=== PATIENT | male | born 1980 | race Caucasian/White ===

== ENCOUNTER 2023-01-27 19:18 | Emergency (ER) | payer OTHER, SELFPAY ==
[2023-01-27 19:25] VITALS: BP 146/81; PULSE 98; RESP 16; TEMP 36.9; O2SAT 98
--- NOTE | 2023-01-27 19:42 | ED.URI ---
HPI - URI/Sore Throat General Chief Complaint: Upper Respiratory Infection Stated Complaint: Sore Throat Time Seen by Provider: 01/27/23 19:32 Source: patient and RN notes reviewed Mode of arrival: ambulatory Limitations: no limitations History of Present Illness HPI Narrative: Patient presents today complaining of congestion, sore throat, postnasal drip, hoarse voice, cough since 3:00 a.m. this morning. Denies fever. He has been taking Tylenol and DayQuil today without much relief. Currently rates his pain 5/10. States his son is also currently sick with similar symptoms. Related Data Home Medications Medication Instructions Recorded Confirmed buprenorphine 8 mg-naloxone 2 mg 1 tablet sublingual QID 01/27/23 01/27/23 sublingual tablet citalopram 40 mg tablet 40 mg PO DAILY 01/27/23 01/27/23 clonazepam 1 mg tablet 3.5 mg PO DAILY 01/27/23 01/27/23 gabapentin 300 mg capsule 300 mg PO TID 01/27/23 01/27/23 mirtazapine 45 mg tablet 45 mg PO HS 01/27/23 01/27/23 omeprazole 40 mg capsule,delayed 40 mg PO DAILY 01/27/23 01/27/23 release Allergies Allergy/AdvReac Type Severity Reaction Status Date / Time No Known Allergies Allergy Verified 01/27/23 19:23 Review of Systems Review of Systems: CONSTITUTIONAL: Denies body aches, fever, chills, or sweats. EYES: Denies visual changes, redness, or discharge. ENT: Denies rhinorrhea, or otalgia.+ congestion, sore throat, postnasal drip, hoarse voice CARDIOVASCULAR: Denies chest pain, palpitations, or edema. RESPIRATORY: Denies dyspnea.+ cough GASTROINTESTINAL: Denies abdominal pain, nausea, vomiting, or diarrhea. GENITOURINARY: Denies dysuria or hematuria. SKIN: Denies rash, itching, or wounds. MUSCULOSKELETAL: Denies back pain, joint pain, or myalgia. NEUROLOGIC: Denies headache, numbness, tingling, or weakness. PSYCH: Denies depression or anxiety. PMFSH Comments At time of signature, I have reviewed and agree with nursing past medical, surgical, social and family history unless otherwise noted. Please see nursing chart for further information. There is no relevant family history pertinent to the presenting complaint Exam Narrative: GENERAL: Mildly ill-appearing, well-nourished, and in no acute distress. HEAD: Normocephalic, atraumatic. EYES: EOMI. No redness or drainage. Conjunctivae normal. ENT: Mucous membranes pink and moist. Nares congested.. No rhinorrhea. TMs normal bilaterally. Throat mildly erythematous without edema or exudate. Uvula midline. Hoarse voice. NECK: Normal AROM. Supple. No lymphadenopathy. CHEST: No respiratory distress. Clear to auscultation. HEART: Regular rate and rhythm. No murmur appreciated. Normal peripheral pulses. EXTREMITIES: Normal range of motion. No edema. SKIN: Warm, dry, no rash. Capillary refill normal. Normal skin turgor. NEURO: No focal deficits. Alert and oriented x3. Gait steady. PSYCH: Normal affect. No signs of depression or anxiety. Course Course Level of Care: Express Care Visit Vital Signs Vital signs: Vital Signs Temperature 98.4 F 01/27/23 19:25 Pulse Rate 98 01/27/23 19:25 Respiratory Rate 16 01/27/23 19:25 Blood Pressure 146/81 H 01/27/23 19:25 Pulse Oximetry 98 01/27/23 19:25 Oxygen Delivery Room Air 01/27/23 19:25 Temperature 98.4 F 01/27/23 19:25 Pulse Rate 98 01/27/23 19:25 Respiratory Rate 16 01/27/23 19:25 Blood Pressure 146/81 H 01/27/23 19:25 Pulse Oximetry 98 01/27/23 19:25 Oxygen Delivery Room Air 01/27/23 19:25 Reviewed. Pt has been instructed to follow up with his PCP regarding his elevated blood pressure today. MDM - URI/Sore Throat MDM Narrative Medical decision making narrative: Rapid strep negative. Culture pending. Symptoms likely viral. No prescription medications indicated at this time. Anticipatory guidance given. Differential Diagnosis Differential diagnosis: Likely upper respiratory infection, sinusitis, viral infection, b
== END 2023-01-27 19:52 | disposition home or self-care (01) ==
PROVIDERS: Emergency Provider Nurse Practitioner
DX: J06.9 Acute upper respiratory infection, unspecified (principal); F41.9 Anxiety disorder, unspecified
CPT/HCPCS: 87081; 87880; 99213; G0463

== ENCOUNTER 2024-03-11 13:36 | Outpatient (CLI) | payer OTHER, SELFPAY ==
--- NOTE | ~2024-03-11 | XR_ITS ---
XR chest 2V 03/11/2024 13:47 Indication: Dyspnea. Pneumonia. Procedure: 2 view chest Comparison: 09/02/2011 Findings: Bibasilar airspace disease, compatible with pneumonia. Loculated left pleural effusion. Hea rt size normal. No pneumothorax. Impression: 1: Bibasilar pneumonia with loculated left pleural effusion. Reviewed, dictated and finalized at location B. Impression: 1: Bibasilar pneumonia with loculated left pleural effusion.
== END 2024-03-11 13:37 | disposition home or self-care (01) ==
PROVIDERS: Visit Provider Internal Medicine
DX: R06.00 Dyspnea, unspecified (principal); J90 Pleural effusion, not elsewhere classified; J18.8 Other pneumonia, unspecified organism
CPT/HCPCS: 71046

== ENCOUNTER 2024-04-05 07:33 | Outpatient (CLI) | payer OTHER, SELFPAY ==
--- NOTE | 2024-04-02 12:54 | PC.NURSE ---
Pre Radiology instructions Report to the outpatient oni [email or web address] on date _[id number]_ at time _0730_ for procedure Time: _929_ YOU MAY BE MONITORED AT HOSPITAL FOR UP TO 4 HOURS AFTER YOUR PROCEDURE. A visitor will be allowed to accompany the patient into the hospital. You and your visitor will be asked to self-screen and do not enter if you have any COVID symptoms. A mask is OPTIONAL within the hospital. Patients are to have no food or drink 6 hours prior to procedure time Driving will be restricted after the procedure, you must have a person to drive you home. Labs will be drawn in preop area and once reviewed, you will be taken to radiology area for procedure. When the procedure is completed, you will be taken to outpatient where you will be monitored for several hours. You may have one visitor in this area. Other than holding anti-coagulants, patient may take other medication(s) as scheduled. Prior to your appointment date patients are instructed to hold anti-coagulants after discussing with ordering provider to stop. If unable to discontinue anti-coagulants please notify radiologist. ? No aspirin or warfarin (Coumadin) for 7 days prior to the procedure. ? No clopidogrel (Plavix), ticagrelor (Brilinta), prasugrel (Effient) or dabigatran (Pradaxa) for 5 days prior to the procedure. ? No rivaroxaban (Xarelto), apixaban (Eliquis), dipyridamole (Aggrenox or Persantine) or cilostazol (Pletal) for 2 days prior to the procedure. Medications to discontinue per physician: Date to take last dose: Please leave all valuables, including medications, at home the day of procedure. The hospital will not accept responsibility for valuables. Wear comfortable, loose fitting clothing.? Follow any additional instructions given to you from ordering provider. Telephone instructions given to _Ramirez__and asked if any additional questions and then verbalized understanding. Patient advised to call scheduling provider office or registration scheduling [phone] if any additional questions.
[2024-04-02 13:00] VITALS: BMI 39.9
[2024-04-05] VITALS (8 sets, daily range): BP systolic 107–131; BP diastolic 63–95; PULSE 84–96; RESP 16–18; TEMP 36.5; O2SAT 96–98
--- NOTE | ~2024-04-05 | XR_ITS ---
EXAMINATION: [id number] DATE: 04/05/2024 09:56 INDICATION: Left pleural effusion status post thoracentesis. TECHNIQUE: A single frontal view of the chest was obtained. COMPARISON: Chest 2 views 03/11/2024 FINDINGS: There are airspace opacities in the mid and lower lung zones. There is a small left pleural effusion. No pneumothorax. The heart size is normal. IMPRESSION: 1. Airspace opacities in the mid and lower lung zones with improvement on the right, consistent with pneumonia. 2. Small left pleural effusion. Reviewed, dictated and finalized at location A. IMPRESSION: 1. Airspace opacities in the mid and lower lung zones with improvement on the r ight, consistent with pneumonia. 2. Small left pleural effusion.
--- NOTE | ~2024-04-05 | US_ITS ---
EXAMINATION: US thoracentesis DATE: 04/05/2024 10:20 INDICATION: pleural effusion TECHNIQUE: The procedure and its risks, benefits, and alternatives were discussed with the patient. P otential risks discussed included bleeding, infection, and pneumothorax. The patient understood the r isks and agreed to proceed. The skin was prepped and draped in sterile fashion. 1% lidocaine was used for local anesthesia. Under ultrasound guidance, a 5 Fr catheter with trochar was advanced into the left pleural effusion. Fluid was aspirated. The catheter was removed, and a dressing was applied. The re were no immediate complications. FINDINGS: Ultrasound images demonstrate a left pleural effusion and the catheter within the fluid. IMPRESSION: 1. Successful ultrasound-guided thoracentesis yielding 100 mL of bloody opaque bergeron fluid. Reviewed, dictated and finalized at location A.
--- NOTE | 2024-04-05 08:07 | SUR.PREOP ---
Radiologist notified that patient consumed monster energy drink at 0500, okay to resume with labs
[2024-04-05 08:32] LABS: Mean Platelet Volume 9.6 fl (7.4-10.4); Platelet Count Result 223 k/mm3 (150-375)
[2024-04-05 08:37] LABS: Prothrombin Time 13.8 Seconds (11.1-14.7)
== END 2024-04-05 12:05 | disposition home or self-care (01) ==
PROVIDERS: PCP Internal Medicine; Visit Provider Radiology Diagnostic Radiology
DX: J90 Pleural effusion, not elsewhere classified (principal)
CPT/HCPCS: 32555; 36415; 82150; 82945; 84157; 85049; 85610; 87070; 87075; 87077; 87205; 88108; 88305

== ENCOUNTER 2024-04-09 12:39 | Emergency (ER) | payer OTHER, SELFPAY ==
[2024-04-09] VITALS (8 sets, daily range): BP systolic 99–129; BP diastolic 63–84; PULSE 84–97; RESP 10–20; TEMP 37.3; O2SAT 94–100
--- NOTE | ~2024-04-09 | CT_ITS ---
EXAMINATION: CTA chest PE protocol DATE: 04/09/2024 14:28 INDICATION: Hemoptysis. TECHNIQUE: Computed tomography angiography (CTA) of the chest was performed with 100 mL Omnipaque-350 intravenous contrast timed to evaluate the pulmonary arteries. Coronal maximum intensity projection 3D-reconstructions were created by the technologist. Automated exposure control and iterative reconst ruction technique were employed. The dose-length product was 1054.60 mGy-cm. COMPARISON: None. FINDINGS: There are tree-in-bud opacities and centrilobular nodules in all lobes with a lower lung pr edominance. There are peripheral airspace opacities in left lower lobe. There is a small left pleural effusion with pleural thickening and stranding of the extrapleural fat. The heart size is normal. No pericardial effusion. There is no pulmonary embolus. There is mild left hilar and mediastinal lympha denopathy, likely reactive. There is mild bilateral gynecomastia. There is a large sliding hiatal her marta. There is mild splenomegaly. There are bridging endplate osteophytes at multiple levels in the sp ine, consistent with diffuse idiopathic skeletal hyperostosis (DISH). IMPRESSION: 1. No pulmonary embolus. 2. Pneumonia involving all lobes with a lower lung predominance. 3. Small left-sided empyema. 4. Mild left hilar and mediastinal lymphadenopathy, likely reactive. 5. Large sliding hiatal hernia. Reviewed, dictated and finalized at location A.
--- NOTE | 2024-04-09 12:58 | ECG_ITS ---
Test Date: 2024-04-09 13:57:39 Measurements Intervals [place] Rate: 89 P: 33 ME: 172 QRS: 33 QRSD: 97 T: 36 QT: 347 QTc: 423 Interpretive Statements SINUS RHYTHM NORMAL ELECTRIC CART No previous ECG available for comparison Electronically Signed On 04-09-2024 15:58:04 CDT by Davide Tucker M.D.
--- NOTE | 2024-04-09 13:00 | ED.GENADULT ---
HPI - General Adult General Chief complaint: Unspecified <Brie Carter PA-C - Last Filed: 04/09/24 13:03> Stated complaint: coughing up blood <Brie Carter PA-C - Last Filed: 04/09/24 13:03> Time Seen by Provider: 04/09/24 15:36 <Brie Carter PA-C - Last Filed: 04/09/24 13:03> Focused HPI: 43 y/o M Presents to the emergency department for hemoptysis. Patient states 4 days ago he underwent an outpatient thoracentesis ordered by his PCP. States after the procedure he has small amount of hemoptysis and contacted his PCP who advised him to follow-up to the ED if it worsens. States he was asymptomatic for few days, however last night he began coughing up large amounts of blood which persisted today and prompted him to come to the ED. He reports intermittent chest pain, no shortness of breath. Denies cough or congestion, fever. He is reporting some swelling to his lower extremities and states his PCP recently started him on Lasix. Denies formal diagnosis of CHF or lung cancer. He is not anticoagulated. GENERAL: Well-appearing, well-nourished, and in no acute distress. HEAD: Normocephalic, atraumatic. CHEST: Clear to auscultation. ?No respiratory distress. EXTREMITIES: 2+ pitting edema bilateral lower extremities without overlying warmth or erythema HEART: Regular rate and rhythm.? NEURO: ?Alert and oriented x3. Patient screened in triage and initial orders placed.? ?Additional care and disposition to be based upon?diagnostic testing and treatment. <Brie Carter PA-C - Last Filed: 04/09/24 13:03> History of Present Illness HPI narrative: 43-year-old male presents emergency department for evaluation hemoptysis. Patient states since having his thoracentesis he has had intermittent hemoptysis. Patient does not describe nita hemoptysis. Patient is not coughing and has no distress at time of evaluation. Patient states he has had multiple treatments for pneumonia since January and has been on Augmentin and azithromycin. <Frankie Wisdom MD - Last Filed: 04/09/24 18:53> Related Data Home medications: Home Medications Medication Instructions Recorded Confirmed buprenorphine 8 mg-naloxone 2 mg 1 tablet sublingual QID 01/27/23 04/05/24 sublingual tablet clonazepam 1 mg tablet 2.5 mg PO DAILY 01/27/23 04/05/24 mirtazapine 45 mg tablet 45 mg PO HS 01/27/23 04/05/24 omeprazole 40 mg capsule,delayed 40 mg PO DAILY 01/27/23 04/05/24 release escitalopram oxalate 20 mg tablet 20 mg PO DAILY 04/02/24 04/05/24 furosemide 20 mg tablet 20 mg PO DAILY 04/02/24 04/05/24 gabapentin 600 mg tablet 600 mg PO TID 04/02/24 04/05/24 potassium chloride 20 mEq 20 meq PO DAILY 04/02/24 04/05/24 tablet,extended release bupropion HCl 150 mg 24 hr tablet, 150 mg PO DAILY 04/05/24 04/05/24 extended release <Brie Carter PA-C - Last Filed: 04/09/24 13:03> Allergies/adverse reactions: Allergies Allergy/AdvReac Type Severity Reaction Status Date / Time No Known Allergies Allergy Verified 04/09/24 15:35 <Brie Carter PA-C - Last Filed: 04/09/24 13:03> Review of Systems Review of Systems: All systems reviewed & are unremarkable except as noted in HPI and below <Frankie Wisdom MD - Last Filed: 04/09/24 18:53> Exam Narrative: APPEARANCE: Well appearing, no pain, no distress, well-nourished. HEAD: normocephalic, atraumatic. EYES: PERRLA/EOMI, conjunctivae clear. NOSE: Normal no drainage EARS:TMS clear with good light reflex. THROAT: Pharynx clear, no exudate. NECK: Supple. No adenopathy, no masses. RESPIRATORY: Airway patent, respirations nonlabored. Clear to auscultation bilaterally, no rales, rhonchi, wheezing. CARDIOVASCULAR: Regular rate and rhythm without murmurs rubs or gallops. ABDOMINAL: Soft, nontender, nondistended, normal bowel sounds MUSCULOSKELETAL: Moves all extremities. Strength/ROM intact, No edema, No calf tenderness. NEURO: Alert. Cranial nerves I
[2024-04-09 14:18] LABS: Basophils Absolute Auto 0.1 K/mm3 (0.0-0.1); Basophils Percent Auto 0.6 % (0.2-1.2); Eosinophils Absolute Auto 0.1 K/mm3 (0-0.3); Eosinophils Percent Auto 0.8 % (0-4.4); Hemoglobin 12.4 g/dL (14.0-18.0); Immature Granulocyte Absolute 0.02 K/mm3 (0.00-0.031); Immature Granulocyte Percent A 0.2 % (0-0.5); Lymphocytes Absolute Auto 1.39 K/mm3 (0.9-3.2); Lymphocytes Percent Auto 13.3 % (18.3-44.2); Mean Corpuscular HGB Conc 30.2 g/dl (32-36); Mean Corpuscular Hemoglobin 24.3 pg (26-34); Mean Corpuscular Volume 80.4 fl (80-100); Mean Platelet Volume 9.8 fl (7.4-10.4); Monocytes Absolute Auto 0.7 K/mm3 (0.1-0.6); Neutrophils Absolute Auto 8.2 K/mm3 (1.3-6.7); Neutrophils Percent Auto 78.1 % (45.5-73.1); Platelet Count Result 238 k/mm3 (150-375); Red Cell Distribution Width 17.4 % (11.5-14.5); White Blood Count 10.5 K/mm3 (4.5-10.0)
[2024-04-09 14:25] LABS: INR 1.2
[2024-04-09 14:26] LABS: Partial Thromboplastin Time 32.7 Seconds (22.3-36.8)
[2024-04-09 14:33] LABS: Alanine Aminotransferase 12 U/L (6-50); Albumin Level 4.6 g/dL (3.5-5.1); Alkaline Phosphatase 99 U/L (38-126); Anion Gap 7 mmol/L (4-12); Aspartate Amino Transferase 21 U/L (17-59); Bilirubin,Total 1.1 mg/dL (0.2-1.3); Blood Urea Nitrogen 9 mg/dL (9-20); Calcium 9.3 mg/dL (8.4-10.2); Carbon Dioxide 32 mmol/L (22-30); Chloride 99 mmol/L (98-107); Estimated CRCL calculation 109 ml/min; Estimated Glomerular Filt Rate > 60; Glucose 101 mg/dL (65-110); Lipase 33 U/L (23-300); Sodium 138 mmol/L (137-145)
[2024-04-09 14:44] LABS: NT Pro B Type Natriuretic Pept 30 pg/mL (19.9-100); Troponin I < 0.012 ng/mL (0.000-0.034)
--- NOTE | 2024-04-09 16:54 | ECG_ITS ---
Test Date: 2024-04-09 16:57:49 Measurements Intervals [place] Rate: 85 P: 14 DE: 160 QRS: 40 QRSD: 98 T: 36 QT: 366 QTc: 435 Interpretive Statements SINUS RHYTHM Compared to ECG 04/09/2024 13:57:39 No significant changes Electronically Signed On 04-10-2024 11:07:45 CDT by Víctor Moreno M.D.
[2024-04-09] MEDS: SODIUM CHLORIDE 0.9% IV 500 ML 999 ML IV CONT (17:00)
[2024-04-09 17:02] LABS: Troponin I < 0.012 ng/mL (0.000-0.034)
[2024-04-09] MEDS: AMOXICILLIN/CLAVULANATE K 875-125 MG TAB 1 TABLET PO (17:21)
[2024-04-09] MEDS: AZITHROMYCIN 250 MG TABLET 500 MG PO (17:21)
[2024-04-12 08:15] LABS: Estimated CRCL calculation 100 ml/min; Estimated Glomerular Filt Rate > 60
== END 2024-04-09 17:28 | disposition home or self-care (01) ==
PROVIDERS: Physician Assistant; Emergency Provider Emergency Medicine; PCP Internal Medicine
DX: J18.9 Pneumonia, unspecified organism (principal); R04.2 Hemoptysis; K44.9 Diaphragmatic hernia without obstruction or gangrene
CPT/HCPCS: 36415; 71275; 80053; 82565; 83690; 83880; 84484; 85025; 85610; 85730; 93005; 94664; 99284; A9270; J7040; Q9967

== ENCOUNTER 2024-05-28 13:58 | Outpatient (CLI) | payer OTHER, SELFPAY ==
--- NOTE | ~2024-05-28 | XR_ITS ---
XR chest 2V 05/28/2024 14:20 Indication: Lower respiratory infection Procedure: 2 view chest Comparison: 05/28/2024 Findings: Large hiatal hernia. Loculated left pleural effusion. Left basilar airspace disease may rep resent atelectasis or residual pneumonia. Heart size normal. Right lung clear. No pneumothorax. Impression: 1: Left basilar airspace disease may represent atelectasis or residual pneumonia. 2: Persistent loculated left pleural effusion. Reviewed, dictated and finalized at location B. Impression: 1: Left basilar airspace disease may represent atelectasis or residual pneumoni a. 2: Persistent loculated left pleural effusion.
== END 2024-05-28 13:59 | disposition home or self-care (01) ==
LOC: ANHIMG 14:02
PROVIDERS: PCP Internal Medicine; Visit Provider Internal Medicine
DX: J22 Unspecified acute lower respiratory infection (principal); J90 Pleural effusion, not elsewhere classified
CPT/HCPCS: 71046

== ENCOUNTER 2025-01-10 15:02 | Outpatient (CLI) | payer OTHER, SELFPAY ==
[2025-01-10 15:17] LABS: Basophils Absolute Auto 0.03 K/mm3 (0.00-0.10); Basophils Percent Auto 0.6 % (0.0-1.0); Eosinophils Absolute Auto 0.09 K/mm3 (0.02-0.50); Eosinophils Percent Auto 1.7 % (1.0-6.0); Hematocrit 40.7 % (40.0-54.0); Hemoglobin 11.7 g/dL (14.0-18.0); Immature Granulocyte Absolute 0.01 K/mm3 (0.00-0.00); Immature Granulocyte Percent A 0.2 % (0.0-0.0); Lymphocytes Absolute Auto 1.05 K/mm3 (1.10-4.50); Mean Corpuscular HGB Conc 28.7 g/dL (32-36); Mean Corpuscular Hemoglobin 22.1 pg (27.0-31.0); Mean Corpuscular Volume 76.9 fL (78.0-102.0); Mean Platelet Volume 9.4 fl (8.7-11.0); Monocytes Absolute Auto 0.31 K/mm3 (0.10-0.90); Monocytes Percent Auto 5.9 % (2.0-11.0); Neutrophils Absolute Auto 3.75 K/mm3 (1.70-7.20); Neutrophils Percent Auto 71.6 % (50.0-70.0); Platelet Count Result 168 K/mm3 (150-420); Red Blood Count 5.29 M/mm3 (4.70-6.10); Red Cell Distribution Width 18.5 % (11.6-14.4); White Blood Count 5.2 K/mm3 (4.8-10.8)
[2025-01-10 16:24] LABS: Hemoglobin A1C 4.8 % (<5.7)
[2025-01-10 16:36] LABS: Alanine Aminotransferase 28 U/L (16-63); Albumin Level 4.1 g/dL (3.4-5.0); Alkaline Phosphatase 135 U/L (46-116); Anion Gap 5 mmol/L (4-12); Aspartate Amino Transferase 17 U/L (15-37); Bilirubin,Total 0.3 mg/dL (0.00-1.00); Blood Urea Nitrogen 5 mg/dL (7-18); Carbon Dioxide 33 mmol/L (21-32); Chloride 101 mmol/L (98-108); Cholesterol 113 mg/dL (0-200); Estimated Glomerular Filt Rate > 60; Glucose 91 mg/dL (70-99); HDL Direct 28 mg/dL (40-60); LDL Cholesterol Calculated 71 mg/dL (<130); Osmolality Calculated 285 mOsm/kg (285-295); Potassium 4.4 mmol/L (3.5-5.1); Prostate Specific Antigen 0.4 ng/mL (< OR = 4.0); Sodium 139 mmol/L (136-145); Total Protein 7.3 g/dL (6.4-8.2); Triglycerides 68 mg/dL (0-150)
--- OUTSIDE RECORDS SUMMARY | 2025-01-10 16:39 | XMS_ITS | CONTINUITY OF CARE DOCUMENT ---
Author Name nemesio herr Address Unknown Organization [facility] Address [address] [place] [address] Phone [phone] Care Team Providers Care Applier Name Role Phone Galdino May MD Unavailable [phone] Galdino May MD Unavailable [phone] INSURANCE PROVIDERS Payer name Policy type / Coverage type [employer] party ID [employer]ICA[employer] (2) Medicaid [id number]
--- OUTSIDE RECORDS SUMMARY | 2025-01-10 16:39 | XMS_ITS | Referral Summary ---
Author Organization [facility] Address [address] [place] [address] Care Team Providers Care Manager Qa Name Role Phone Jose Hurtado MD Primary Care Provider [phone] Allergies Active Allergy Reactions Criticality Noted Date Comments No Known Allergies Other (See comments) Low 019 Reaction: Medications clonazePAM (KlonoPIN) 1 mg tablet Active citalopram (CeleXA) 10 mg tablet Active ferrous sulfate 325 mg (65 mg of elemental iron) tablet Take by mouth 02/18/2018 Active buPROPion SR (WELLBUTRIN SR) 150 mg 12 hr tablet Take by mouth 06/25/2017 Active buprenorphine-n aloxone (SUBOXONE) 8-2 mg per SL tablet 0 11/25/2018 Active omeprazole (PriLOSEC) 40 mg capsule Take 1 capsule (40 mg total) by mouth daily 03/18/2023 Active mirtazapine (REMERON) 45 mg tablet Take 1 tablet (45 mg total) by mouth nightly 06/01/2023 Active gabapentin (NEURONTIN) 600 mg tablet Take 1 tablet (600 mg total) by mouth 3 (three) times a day as needed 06/05/2023 Active Active Problems Problem Noted Date 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 Immunizations Immunization Administration Dates Next Due Influenza, Unspecified 07/08/2017,10/03/2015 Social History Tobacco Use Types Packs/Day Years Used Date Smoking Tobacco: Former Cigarettes 1.5 20 1 2016 Tobacco Cessation:Counseling Given: Not Answered Sex and Gender Information Value Date Recorded Sex Assigned at Not on file Legal Sex Male 7:17 AM [employer] Gender Identity Not on file Sexual Orientation Not on file Last Filed Vital Signs Vital Sign Reading Time Taken Comments Blood Pressure 145/86 07/11/2017 12:06 PM CDT Pulse 94 07/11/2017 12:06 PM CDT Temperature - - Respiratory Rate - - Oxygen Saturation 96% 07/11/2017 8:05 AM CDT Inhaled Oxygen Concentration - - Weight 117.9 kg (259 lb 15.8 oz) 07/08/2017 9:02 PM CDT Height 175.3 cm (5' 9 ) 07/08/2017 9:02 PM CDT Body Mass Index 38.39 07/08/2017 9:02 PM CDT Plan of Treatment Not on file Insurance [facility] Care Teams Manager Qa Relationship Specialty Start Date End Date Jose Hurtado MD PCP - General 03/24/17
--- OUTSIDE RECORDS SUMMARY | 2025-01-10 16:39 | XMS_ITS | Patient Health Record ---
Author Organization [facility] Address [address] [place] [address] Care Team Providers Care Bottle Booth Attendant Name Role Phone Murphy Loza Primary Care Provider [phone] Kyra Tamez Unavailable [phone] Layla Curry Unavailable [phone] Chencho Levin Unavailable [phone] Renee Batista Unavailable [phone] Keyur Parson Unavailable [phone] Regina Plasencia Unavailable [phone] Allergies No Known Allergies Results Component Value Reference Range Notes 12 Panel Urine Drug Screen Reviewed date:12/29/2024 01:42:54 PM Interpretation: Performing Lab: Notes/Report: THC neg LORA neg MOP (OPI) neg AMP neg MET neg BAR neg BZO neg MDMA neg MTD neg OXY neg PCP neg BUP POS 12 Panel Urine Drug Screen Reviewed date:02/19/2024 01:19:31 PM Interpretation: Performing Lab: Notes/Report: THC NEG LORA NEG MOP (OPI) neg AMP neg MET neg BAR neg BZO neg MDMA neg MTD neg OXY neg PCP neg BUP POS 12 Panel Urine Drug Screen Reviewed date:03/08/2024 07:23:03 PM Interpretation: Performing Lab: Notes/Report: THC neg LORA neg MOP (OPI) neg AMP neg MET neg BAR neg BZO neg MDMA neg MTD neg OXY neg PCP neg BUP POS Chest X-ray PA and lateral Reviewed date:03/22/2024 02:57:48 PM Interpretation: Performing Lab: Notes/Report: 12 Panel Urine Drug Screen Reviewed date:04/19/2024 10:50:32 AM Interpretation: Performing Lab: Notes/Report: THC neg LORA neg MOP (OPI) neg AMP neg MET neg BAR neg BZO neg MDMA neg MTD neg OXY neg PCP neg BUP POS 12 Panel Urine Drug Screen Reviewed date:11/29/2024 01:49:41 PM Interpretation: Performing Lab: Notes/Report: THC neg LORA neg MOP (OPI) neg AMP neg MET neg BAR neg BZO neg MDMA neg MTD neg OXY neg PCP neg BUP POS 12 Panel Urine Drug Screen Reviewed date:05/19/2024 01:06:09 PM Interpretation: Performing Lab: Notes/Report: THC neg LORA neg MOP (OPI) neg AMP neg MET neg BAR neg BZO neg MDMA neg MTD neg OXY neg PCP neg BUP POS Buprenorphine and Metabolite (Urine test) Reviewed date:03/11/2024 02:34:36 PM Interpretation: Normal Performing Lab:[facility], [address], [place], Phone - [phone], Director - PhDAbudu Notes/Report: Clinical Information:[id number]:[id number] LM Buprenorphine Positive Confirmation p erformed by Mass Spectrometry Buprenorphine Positive Buprenorphine Conf, MS, UR 229 Cutoff=10 ng/m L Norbuprenorphine Positive Norbuprenorphine Conf, MS, UR >2000 Cutoff=10 n g/mL 12 Panel Urine Drug Screen Reviewed date:03/05/2024 01:19:23 PM Interpretation: Performing Lab: Notes/Report: THC neg LORA neg MOP (OPI) neg AMP ng MET neg BAR neg BZO neg MDMA neg MTD neg OXY neg PCP neh BUP POS 12 Panel Urine Drug Screen Reviewed date:07/19/2024 10:13:50 AM Interpretation: Performing Lab: Notes/Report: THC neg LORA neg MOP (OPI) neg AMP neg MET neg BAR neg BZO neg MDMA neg MTD neg OXY neg PCP neg BUP POS 12 Panel Urine Drug Screen Reviewed date:11/02/2024 09:30:39 AM Interpretation: Performing Lab: Notes/Report: THC neg LORA neg MOP (OPI) neg AMP neg MET neg BAR neg BZO neg MDMA neg MTD neg OXY neg PCP neg BUP POS Ultrasound Guided Thoracente sis Reviewed date:05/21/2024 02:40:21 PM Interpretation: Performing Lab: Notes/Report: 12 Panel Urine Drug Screen Reviewed date:10/04/2024 01:28:23 PM Interpretation: Performing Lab: Notes/Report: THC neg LORA neg MOP (OPI) neg AMP neg MET neg BAR neg BZO neg MDMA neg MTD neg OXY neg PCP neg BUP pos 12 Panel Urine Drug Screen Reviewed date:06/17/2024 01:30:22 PM Interpretation: Performing Lab: Notes/Report: THC neg LORA neg MOP (OPI) neg AMP neg MET neg BAR neg BZO neg MDMA neg MTD neg OXY neg PCP neg BUP POS 12 Panel Urine Drug Screen Reviewed date:08/16/2024 10:23:07 AM Interpretation: Performing Lab: Notes/Report: THC neg LORA neg MOP (OPI) neg AMP neg MET neg BAR neg BZO neg MDMA neg MTD neg OXY neg PCP neg BUP POS Reason For Referral Reason pneumonia Diagnosis 1 Pneumonia of both lo wer lobes due to infectious organism (J18.9) Referral Organization Formerly [facility] Referring Provider First Name Murphy Referring Provider Last Name Dago Referring Provider Speciality Internal M edicine Referred Provider Specialty Pulmonology General Notes HENOK Stoll, Jillian Terry 04/12/2024 02:40:35 PM >Referral to [facility] Pulmonology. Letter to pt. , * Pt went to [facility] ED on 04/09/24 for coughing up blood ;diagnosed with Pneumonia. On 2 antibiotics; referred to Pulmonology from [facility] ED. Appt with Dr. Loza on 04/16/2024., Jared WHITING, Belen Bradley 05/21/2024 02:38:15 PM > Addressing referral due to pt. established care with specialist. Clinical Notes [facility], [address], [address] [address], , Referral Priority Routine Medications Medication SIG (Take, Route, Frequency, Duration) Notes Start Date End Date Status Gabapentin 600 MG 1 tablet Orally Thre e times daily for 30 days Active Escitalopram Oxalate 20 MG 1 tablet Oral ly Once a day for 30 days Active Buprenorphine HCl-Naloxone HCl 4-1 MG 1 film under the tongue and allow to dissolve Sublingual Once a day As needed for opioid withdrawal 12/29/2024 Active buPROPion HCl ER (XL) 300 MG 1 tablet in the morning Orally Once a day for 30 days Active KlonoPIN 1 MG 1 tablet Orally up to 3 tablets per day As needed Active Mirtazapine 45 MG 1 tablet at bedtime Orally Once a day for 30 days Active Wellbutrin 75 MG 1 tablet Orally ever y morning for 30 days 09/27/2016 Active Sublocade 300 MG/1.5ML 1.5 mL Subcutaneo us every 28 days 11/29/2024 Active Immunizations Vaccine Route Administration Date Status Comme nts FLU VAC NO PRSV 4VAL 6 mo+ IM Intramuscular 08/10/2024 Administered Vanda Faulkner 08/10/2024 04:10 PM CDT >Given LMD, tolerated well. [facility] [place] [id number] Social History Tobacco Use: Social History Observation Description Date Details (start date - stop date) Current Smoker NA - NA Sex Assigned At : Social History Observation Description Sex Assigned At Male Tobacco Control (Standard) Question Answer Notes Tobacco use: Current smoker AUDIT-C (Standard) Question Answer Notes Did you have a drink containing alcohol in the p ast year? No Points 0 Interpretation Negative Problems Problem Type SNOMED Code ICD Code Onset Dates Problem Status W/U Status Risk Notes Problem Tobacco user (551228324) Nicotine dependence, unspecified, uncomplicated (F17.200) Active confirmed Problem Severe recurrent major depression without psychotic features (65960910) Major depressive disorder, recurrent severe without psychotic features (F33.2) Active confirmed Problem Major depression (071934574) Major depression (F32.9) 4 Active confirmed Problem Anxiety (76023643) Anxiety (F41.9) Active confirmed Problem Thyroid nodule (510929480) Thyroid nodule (E04.1) Active confirmed Problem Obstructive sleep apnea (05247373) Obstructive sleep apnea (G47.33) 4 Active confirmed Problem Obesity (239179880) Obesity (BMI 30-39.9) (E66.9) Active confirmed Problem Body mass index 30+ - obesity (842099688) Body mass index (BMI) of 30.0-30.9 in adult (Z68.30) Active confirmed Problem Obesity (994220744) Obesity, unspecified classification, unspecified obesity type, unspecified whether serious comorbidity present (E66.9) Active confirmed Problem Steatosis of liver (445494584) Hepatic steatosis (K76.0) Active confirmed Problem Mental disorder caused by drug (616749141) Opioid use disorder (F11.99) 4 Active confirmed Problem History of cancer (603998280) History of cancer (Z85.9) 7 Active confirmed Vital Signs Heart Rate 90 /min 12/29/2024 Temperature 98.6 degrees Fahrenheit 11/02/2024 Respiratory Rate 18 /min 12/29/2024 Blood pressure diastolic 68 mm Hg 12/29/2024 Oximetry 97 % 12/29/2024 Height 70 in 12/29/2024 Blood pressure systolic 124 mm Hg 12/29/2024 Weight 272 lb 4 oz lbs 12/29/2024 BMI 39.06 kg/m2 12/29/2024 Encounters Encounter Location Date Provider Diagnosis [address] [address] 02/16/2024 Kyra Tamez [address] [address] 02/09/2024 Kyra Tamez Major depression F32.9 ; Anxiety F41.9 and Medication monitoring encounter Z51.[address] [address] 02/19/2024 Regina Plasencia Opioid use disorder F11.99 and Obesity (BMI 30-39.9) E66.[address] [address] 02/19/2024 Renee Mendezrochelle [address] [address] 03/05/2024 Chencho Levin Opioid use disorder F11.99 ; Obesity (BMI 30-39.9) E66.9 and Nutritional counseling Z71.[address] [address] 03/05/20[facility] [address] 03/11/2024 Murphy Loza Dyspnea R06.00 ; Pleural effusion J90 ; Edema of both legs R60.0 ; Heart murmur, systolic R01.1 ; Hepatic steatosis K76.0 ; Major depression F32.9 ; Opioid use disorder F11.99 ; History of cancer Z85.9 ; Obstructive sleep apnea G47.33 ; Thyroid nodule E04.1 and Periodontal disease K05.[address] [address] 03/15/2024 Kyra Tamez Major depression F32.9 ; Anxiety F41.9 and Medication monitoring encounter Z51.[address] [address] 03/18/2024 Murphy Loza Pleural effusion J90 ; Pneumonia J18.9 ; History of cancer Z85.9 and Heart murmur, systolic R01.[address] [address] 04/06/2024 Murphy Loza Pleural effusion J90 and Opioid use disorder F11.[address] [address] 04/19/2024 Regina Plasencia Opioid use disorder F11.99 ; Obesity (BMI 30-39.9) E66.9 and Nutritional counseling Z71.[address] [address] 04/21/2024 Keyur Parson Major depression F32.9 and Anxiety F41.[address] [address] 04/22/2024 Murphy Loza Nutritional counseling Z71.3 and Pleural effusion J90 [address] [address] 05/06/2024 Murphy Loza Lower respiratory infection J22 and Nutritional counseling Z71.[address] [address] 05/17/2024 Murphy Loza Anxiety F41.9 ; Feve r R50.9 ; Major depressive disorder, recurrent severe without psychotic features F33.2 ; Major depression F32.9 and Lower respiratory infection J22 [address] [address] 05/19/2024 Regina Szlufik Opioid use disorder F11.99 ; Dietary counseling Z71.3 and Obesity (BMI 30-39.9) E66.[address] [address] 05/19/2024 Renee Batista [address] [address] 06/02/2024 Keyur Parson Major depression F32.9 and Anxiety F41.[address] [address] 06/17/2024 Chencho Levin Opioid use disorder F11.99 ; Obesity (BMI 30-39.9) E66.9 ; Nutritional counseling Z71.3 and Nicotine dependence, unspecified, uncomplicated F17.[address] [address] 07/19/2024 Regina Paulsonlufik Opioid use disorder F11.99 ; Nicotine dependence, unspecified, uncomplicated F17.200 ; Obesity (BMI 30-39.9) E66.9 and Nutritional counseling Z71.[address] [facility] [address] [place] [address] [place] [address] 08/10/2024 Kyra Tamez Encounter for immunization Z23 ; Major depression F32.9 and Anxiety F41.[address] [place] [address] 08/16/2024 Murphy Loza Opioid use disorder F11.99 and Nutritional counseling Z71.[address] [place] [address] 09/13/2024 Murphy Loza Opioid use disorder F11.[address] [address] 10/04/2024 Regina Szlufik Opioid use disorder F11.[address] [place] [address] 11/02/2024 Regina Plasencia Opioid use disorder F11.99 and Nutritional counseling Z71.3 [facility] [address] [place] [address] 11/09/2024 Kyra Tamez Major depression F32.9 and Anxiety F41.[address] [place] [address] 11/29/2024 Regina Plasencia Opioid use disorder F11.[address] [place] [address] 12/29/2024 Regina Paulsonlufimalick Opioid use disorder F11.[address] [place] [address] 12/29/2024 Regina Plasencia [address] [place] [address] 02/09/2024 Kyra Tamez [address] [address] 03/02/2024 Kyra Tamez Anxiety F41.9 and Major depression F32.[address] [place] [address] 03/12/2024 Kyra Tamez Pneumonia J18.9 [facility] [address] [place] [address] 03/22/2024 Murphy Loza [address] [place] [address] 04/09/2024 Murphy Loza [address] [place] [address] 04/16/2024 Murphy Loza Major depressive disorder, recurrent severe without psychotic features F33.2 and Major depression F32.[address] [place] [address] 05/17/2024 Murphy Loza [address] [place] [address] 05/21/2024 Murphy Loza Lower respiratory infection J22 [address] [place] [address] 05/24/2024 Murphy Loza [facility] [address] [place] [address] 10/22/2024 Kyra Tamez Major depression F32.9 Assessments Encounter Date Diagnosis (ICD Code) Assessment Notes Treatment Notes Treatment Clinical Notes Section Notes 03/12/2024 Pneumonia (ICD-10 - J18.9) 05/21/2024 Lower respiratory infection (ICD-10 - J22) 06/02/2024 Major depression (ICD-10 - F32.9) 05/19/2024 Opioid use disorder (ICD-10 - F11.99) 05/19/2024 Dietary counseling (ICD-10 - Z71.3) 06/17/2024 Obesity (BMI 30-39.9) (ICD-10 - E66.9) 06/17/2024 Opioid use disorder (ICD-10 - F11.99) 07/19/2024 Nicotine dependence, unspecified, uncomplicated (ICD-10 - F17.200) 07/19/2024 Opioid use disorder (ICD-10 - F11.99) 08/10/2024 Encounter for immunization (ICD-10 - Z23) pt tolerated well. Ordered per standing orders for administering influenza vaccine to adults Ordered per standing orders for administering influenza vaccine to adults. Ordered per standing orders for administering influenza vaccine to adults. Ordered per standing orders for administering influenza vaccine to adults. 08/16/2024 Opioid use disorder (ICD-10 - F11.99) 09/13/2024 Opioid use disorder (ICD-10 - F11.99) 10/04/2024 Opioid use disorder (ICD-10 - F11.99) 10/22/2024 Major depression (ICD-10 - F32.9) 11/02/2024 Nutritional counseling (ICD-10 - Z71.3) 11/02/2024 Opioid use disorder (ICD-10 - F11.99) 11/09/2024 Major depression (ICD-10 - F32.9) 11/29/2024 Opioid use disorder (ICD-10 - F11.99) 12/29/2024 Opioid use disorder (ICD-10 - F11.99) 03/15/2024 Major depression (ICD-10 - F32.9) 03/18/2024 Pneumonia (ICD-10 - J18.9) COMPLETE AUGMENTIN 03/18/2024 Pleural effusion (ICD-10 - J90) Dr. Mattson at [facility] to perform U/s guided thoracentesis. 03/05/2024 Opioid use disorder (ICD-10 - F11.99) 03/11/2024 Dyspnea (ICD-10 - R06.00) 03/11/2024 Pleural effusion (ICD-10 - J90) LAKIA OBTAINED FROM [facility] RELATED TO PNEUMONIA VS CHF VS RECURRENT CA 04/06/2024 Pleural effusion (ICD-10 - J90) AWAIT RESULTS ON PLEURAL FLUID FROM 04/05 THORACENTESIS 04/06/2024 Opioid use disorder (ICD-10 - F11.99) 04/16/2024 Major depressive disorder, recurrent severe without psychotic features (ICD-10 - F33.2) 04/19/2024 Obesity (BMI 30-39.9) (ICD-10 - E66.9) 04/19/2024 Opioid use disorder (ICD-10 - F11.99) 04/21/2024 Major depression (ICD-10 - F32.9) Client wishes for his treatment plan to remain unchanged though his depression/ anxiety unchanged from previous session with provider. Wants to give Lexapro more time to work. 04/22/2024 Pleural effusion (ICD-10 - J90) PARAPNEUMONIC, RESOLVING REVIEWED RESULTS OF U/S GUIDED THORACENTESIS PATH WITH DON AND SPOUSE. 04/22/2024 Nutritional counseling (ICD-10 - Z71.3) 05/06/2024 Lower respiratory infection (ICD-10 - J22) 05/17/2024 Anxiety (ICD-10 - F41.9) CONTINUE KLONOPIN TAPER WITH [facility] 05/17/2024 Fever (ICD-10 - R50.9) OVERNIGHT. MONITOR TEMP FOR AT LEAST ONE MONTH EVERY AM AND REPORT IF OVER 100. 02/09/2024 Major depression (ICD-10 - F32.9) 02/09/2024 Anxiety (ICD-10 - F41.9) Going down by #5 per month on Klonopin as tolerated. May fill on 03/02. 02/19/2024 Obesity (BMI 30-39.9) (ICD-10 - E66.9) 02/19/2024 Opioid use disorder (ICD-10 - F11.99) 03/02/2024 Anxiety (ICD-10 - F41.9) 03/05/2024 Obesity (BMI 30-39.9) (ICD-10 - E66.9) 03/05/2024 Nutritional counseling (ICD-10 - Z71.3) 03/02/2024 Major depression (ICD-10 - F32.9) 02/09/2024 Medication monitoring encounter (ICD-10 - Z51.81) 05/17/2024 Major depressive disorder, recurrent severe without psychotic features (ICD-10 - F33.2) 05/06/2024 Nutritional counseling (ICD-10 - Z71.3) 04/21/2024 Anxiety (ICD-10 - F41.9) Client wishes for his treatment plan to remain unchanged though his depression/ anxiety unchanged from previous session with provider. Wants to give Nandi Proteinsapro more time to work. 04/19/2024 Nutritional counseling (ICD-10 - Z71.3) 03/18/2024 History of cancer (ICD-10 - Z85.9) 04/16/2024 Major depression (ICD-10 - F32.9) 03/11/2024 Edema of both legs (ICD-10 - R60.0) 03/15/2024 Anxiety (ICD-10 - F41.9) Client is working with [place] provider on BZD taper. Discussed reasons for tapering and why BZDs are not recommended prison in length with client and his significant other. Discussed risks and s/s to monitor for while tapering off, f/u at ED or call 911 with any concerns. 05/19/2024 Obesity (BMI 30-39.9) (ICD-10 - E66.9) 08/16/2024 Nutritional counseling (ICD-10 - Z71.3) 11/09/2024 Anxiety (ICD-10 - F41.9) 08/10/2024 Major depression (ICD-10 - F32.9) 07/19/2024 Obesity (BMI 30-39.9) (ICD-10 - E66.9) 06/17/2024 Nutritional counseling (ICD-10 - Z71.3) 06/02/2024 Anxiety (ICD-10 - F41.9) 06/17/2024 Nicotine dependence, unspecified, uncomplicated (ICD-10 - F17.200) 07/19/2024 Nutritional counseling (ICD-10 - Z71.3) 08/10/2024 Anxiety (ICD-10 - F41.9) 03/15/2024 Medication monitoring encounter (ICD-10 - Z51.81) 03/18/2024 Heart murmur, systolic (ICD-10 - R01.1) 03/11/2024 Heart murmur, systolic (ICD-10 - R01.1) AWAIT RECORDS. HAS HX BICUSPIC AORTIC VALVE AND MVP 05/17/2024 Major depression (ICD-10 - F32.9) OUT OF MEDS BUT HAS PSYCH APPT BY PHONE IN 2 WEEKS. 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 encouraged coping mechanisms. Reasons, potential benefits, potential risks, interactions and side effects of all medications were discussed. The Patient/Guardian asked appropriate questions, appeared to understand the answers, and decided to accept the treatment and continue being followed. Alternatives and expected course without treatment were reviewed. The Patient/Guardian is aware of the need to contact the office or return for an earlier appointment if any problems or concerns arise. May also contact the 24-hour crisis hotline ([facility]), refer to the closest emergency room or call 911 if new symptoms arise of existing symptoms worsen. The Patient/Guardian is aware that this would apply to symptoms like: suicidal ideation, homicidal ideation, high risk behaviors, manic symptoms, psychotic symptoms, physical symptoms, or any other symptoms that may be dangerous to self or others. Greater than 50% of time spent on coordination and counseling where psychopharmacology as well as psychotherapeutic interventions were discussed along with review of treatments in the past. Education provided concerning need for adequate hydration. Patient/Guardian verbalized understanding of education, treatment plan and follow up. 03/05/2024 Other Potential side effects of buprenorphine discussed, as well as taking buprenorphine as prescribed. Dangers of using other controlled substances (prescribed or illegal/including benzodiazepines) with buprenorphine discussed. Patient understands taking other narcotics with buprenorphine could lead to respiratory distress and even . Patient understands that ALL treating providers/physicians should be informed of buprenorphine use as part of a Medication Assisted Treatment program 03/05/2024 Other Provided case management services to address social determinants of health needs and reduce barriers to health care services. 03/15/2024 Other Reasons, potential benefits, potential risks, interactions and side effects of all medications were discussed. The Patient/Guardian asked appropriate questions, appeared to understand the answers, and decided to accept the treatment and continue being followed. Alternatives and expected course without treatment were reviewed. The Patient/Guardian is aware of the need to contact the office or return for an earlier appointment if any problems or concerns arise. May also contact the 24-hour crisis hotline ([facility]), refer to the closest emergency room or call 911 if new symptoms arise of existing symptoms worsen. The Patient/Guardian is aware that this would apply to symptoms like: suicidal ideation, homicidal ideation, high risk behaviors, manic symptoms, psychotic symptoms, physical symptoms, or any other symptoms that may be dangerous to self or others. Greater than 50% of time spent on coordination and counseling where psychopharmacology as well as psychotherapeutic interventions were discussed along with review of treatments in the past. Education provided concerning need for adequate hydration. Patient/Guardian verbalized understanding of education, treatment plan and follow up. 04/19/2024 Other Client agrees to take medication as prescribed. Discussed medication side effects, adverse effects, risks, benefits, as well as interactions. Encouraged non-use of opioids and other illicit substances. Has naloxone. Understand that discontinuing buprenorphine increases the risk of overdose upon return to illicit opioid use. Know that that use of alcohol or benzodiazepines with buprenorphine increases the risk of overdose and . Education provided about safe storage of medications. Encourage participation in recovery groups/counseling services. Contact office with questions or concerns. 04/21/2024 [place] buprenorpheine per Dago ROSENTHAL and clonazepam 1 mg (2.5 daily total prn status) per Neelima ShayMo provider). Discussed sleep hygiene and caffeine intake with encouragement to limit electronic devices an hour before bed and to limit caffeine after 3:00pm. Exercise benefits for mood and health discussed. Psychoeducation regarding psychiatric illness provided. Client was educated about risks and benefits of medication, alternatives to medication, off label uses of medication, suicidal ideation with SSRIs, self-administration and compliance with medication along with how to safely store medication. Verbal informed consent obtained. Client agrees to return sooner if symptoms worsen or if suicidal or homicidal ideations occur. Client has the phone number to the 24-hour crisis line at [place]. Questions addressed. Client verbalized understanding of all information and is agreeable to treatment plan. Client wishes for his treatment plan to remain unchanged though his depression/ anxiety unchanged from previous session with provider. Wants to give Lexapro more time to work. 05/06/2024 Other Learning About the Safe Use of Antibiotics material was discussed. Pt was educated on use of antibiotic medication including dosing, side effects, adverse effects and anticipated response. Pt was also educated on importance of completing full course of treatment as ordered. Patient voiced understanding of all. 05/19/2024 Other Client agrees to take medication as prescribed. Discussed medication side effects, adverse effects, risks, benefits, as well as interactions. Encouraged non-use of opioids and other illicit substances. Has naloxone. Understand that discontinuing buprenorphine increases the risk of overdose upon return to illicit opioid use. Know that that use of alcohol or benzodiazepines with buprenorphine increases the risk of overdose and . Education provided about safe storage of medications. Encourage participation in recovery groups/counseling services. Patient understands that all treating providers/physicians should be informed of buprenorphine use as part of a Medication Assisted Recovery program. Contact office with questions or concerns. 05/19/2024 Other Provided case management services to address social determinants of health needs and reduce barriers to health care services. 06/02/2024 Other Discussed sleep hygiene and caffeine intake with encouragement to limit electronic devices an hour before bed and to limit caffeine after 3:00pm. Exercise benefits for mood and health discussed. Psychoeducation regarding psychiatric illness provided. Client was educated about risks and benefits of medication, alternatives to medication, off label uses of medication, suicidal ideation with SSRIs, self-administration and compliance with medication along with how to safely store medication. Verbal informed consent obtained. Client agrees to return sooner if symptoms worsen or if suicidal or homicidal ideations occur. Client has the phone number to the 24-hour crisis line at [facility]. Questions addressed. Client verbalized understanding of all information and is agreeable to treatment plan. 06/17/2024 Other Potential side effects of buprenorphine discussed, as well as taking buprenorphine as prescribed. Dangers of using other controlled substances (prescribed or illegal/including benzodiazepines) with buprenorphine discussed. Patient understands taking other narcotics with buprenorphine could lead to respiratory distress and even . Patient understands that ALL treating providers/physicians should be informed of buprenorphine use as part of a Medication Assisted Treatment program 07/19/2024 Other Client agrees to take medication as prescribed. Discussed medication side effects, adverse effects, risks, benefits, as well as interactions. Encouraged non-use of opioids and other illicit substances. Has naloxone. Understand that discontinuing buprenorphine increases the risk of overdose upon return to illicit opioid use. Use of alcohol or benzodiazepines with buprenorphine increases the risk of overdose and . Education provided about safe storage of medications. Encourage participation in recovery groups/counseling services. Patient understands that all treating providers should be informed of buprenorphine use as part of a Medication Assisted Recovery program. Contact office with questions or concerns. 10/04/2024 Other Patient agrees to take medication as prescribed. Discussed medication side effects, adverse effects, risks, benefits, as well as interactions. Encouraged non-use of opioids and other illicit substances. Has naloxone. Discontinuing buprenorphine increases the risk of overdose upon return to illicit opioid use. Use of alcohol or benzodiazepines with buprenorphine increases the risk of overdose and . Education provided about safe storage of medications. Encouraged participation in recovery groups/counseling services. Contact office with questions or concerns. Agrees to return to office in 28 days for next injection 11/02/2024 Other Patient agrees to take medication as prescribed. Discussed medication side effects, adverse effects, risks, benefits, as well as interactions. Encouraged non-use of opioids and other illicit substances. Has naloxone. Discontinuing buprenorphine increases the risk of overdose upon return to illicit opioid use. Use of alcohol or benzodiazepines with buprenorphine increases the risk of overdose and . Education provided about safe storage of medications. Encouraged participation in recovery groups/counseling services. Contact office with questions or concerns. Agrees to return in 28 days for next injection. 11/09/2024 Other Reasons, potential benefits, potential risks, interactions and side effects of all medications were discussed. The Patient/Guardian asked appropriate questions, appeared to understand the answers, and decided to accept the treatment and continue being followed. Alternatives and expected course without treatment were reviewed. The Patient/Guardian is aware of the need to contact the office or return for an earlier appointment if any problems or concerns arise. May also contact the 24-hour crisis hotline ([facility]), refer to the closest emergency room or call 911 if new symptoms arise of existing symptoms worsen. The Patient/Guardian is aware that this would apply to symptoms like: suicidal ideation, homicidal ideation, high risk behaviors, manic symptoms, psychotic symptoms, physical symptoms, or any other symptoms that may be dangerous to self or others. Greater than 50% of time spent on coordination and counseling where psychopharmacology as well as psychotherapeutic interventions were discussed along with review of treatments in the past. Education provided concerning need for adequate hydration. Patient/Guardian verbalized understanding of education, treatment plan and follow up. This session was completed telephonically with client/parental/guar talisha consent: Unable to determine movement status, assess appearance, affect, AIMS, or vital signs. 11/29/2024 Other Patient agrees to take medication as prescribed. Discussed medication side effects, adverse effects, risks, benefits, as well as interactions. Encouraged non-use of opioids and other illicit substances. Has naloxone. Discontinuing buprenorphine increases the risk of overdose upon return to illicit opioid use. Use of alcohol or benzodiazepines with buprenorphine increases the risk of overdose and . Education provided about safe storage of medications. Encouraged participation in recovery groups/counseling services. Contact office with questions or concerns. Agrees to return to office in 28 days for next injection. Patient may self-administer their own medications or may self-administer their own oral medications per [facility] Protocol. 12/29/2024 Other Provided list of shelters. Message sent to [facility] [employer] for additional housing resources. Patient agrees to take medication as prescribed. Discussed medication side effects, adverse effects, risks, benefits, as well as interactions. Encouraged non-use of opioids and other illicit substances. Has naloxone. Discontinuing buprenorphine increases the risk of overdose upon return to illicit opioid use. Use of alcohol or benzodiazepines with buprenorphine increases the risk of overdose and . Education provided about safe storage of medications. Encouraged participation in recovery groups/counseling services. Contact office with questions or concerns. Agrees to return in 28 days for next injection. Patient may self-administer their own oral medications per [facility] Protocol. May not self-administer Sublocade. 02/19/2024 Other Provided case management services to address social determinants of health needs and reduce barriers to health care services. 03/12/2024 Other Learning About the Safe Use of Antibiotics material was discussed. Pt was educated on use of antibiotic medication including dosing, side effects, adverse effects and anticipated response. Pt was also educated on importance of completing full course of treatment as ordered. Patient voiced understanding of all. 05/21/2024 Other Learning About the Safe Use of Antibiotics material was discussed. Pt was educated on use of antibiotic medication including dosing, side effects, adverse effects and anticipated response. Pt was also educated on importance of completing full course of treatment as ordered. Patient voiced understanding of all. Plan Of Treatment Future Test Test Name Order Date Echo doppler exam 03/18/2024 Chest X-ray PA and lateral 05/24/2024 Insurance Providers Payer Name Payer Address Payer Phone Subscriber Number Group Number Insured Name Patient Relationship to Insured Coverage Start Date Coverage End Date [facility] Attn Claims Department [address] [place] [address] [phone] [id number] Ramirez Trevizo Self - patient is the insured 4 [facility] Attn Claims Department [address] [place] [address] [id number] Ramirez Trevizo Self - patient is the insured 4 Medications Administered Medication Instructions Date of Administration Dosage Notes Sublocade 10/04/2024 300 mg Chelsey Tarango RN 10/04/2024 02:49:36 PM DEVULCANIZER TENDER >pt tolerated well. minimal discomfort observed or reported. Sublocade 11/02/2024 300 mg Chelsey Tarango RN 11/02/2024 09:53:51 AM DEVULCANIZER TENDER >administered to the right lower quadrant of the abdomen. Pt tolerated well with minimal discomfort observed or reported. Sublocade 11/29/2024 300 mg Wilbert, Natalie L 11/29/2024 02:39:08 PM DEVULCANIZER TENDER >Pt tolerated well. No s&s of adverse reaction. Sublocade 12/29/2024 300 mg Wilbert, Natalie L 12/29/2024 02:52:57 PM CDT > PT tolerated well. No s&s of adverse reaction. 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
--- OUTSIDE RECORDS SUMMARY | 2025-01-10 16:39 | XMS_ITS | Clinical Summary ---
Author Organization [facility] Address [address] [place] [address] Care Team Providers Care Child Welfare Caseworker Name Role Phone Jose Hurtado MD Primary Care Provider [phone] Allergies Active Allergy Reactions Criticality Noted Date [...] Administration Dates Next Due Influenza, Unspecified 07/08/2017,10/03/2015 Family History Medical History Relation Name Comments Hypertension Father Family history of hypertension - (Added by TW Conv) Hypertension Mother Family history of hypertension - (Added by TW Conv) Relation Name Status Comments Father Mother Social History Tobacco Use Types Packs/Day Years Used Date Smoking Tobacco: Former Cigarettes 1.5 20 1 992016 Tobacco Cessation:Counseling Given: Not Answered Sex and Gender Information Value Date Recorded Sex Assigned at Not on file Legal Sex Male 7:17 AM RASPBERRY CHECKER Gender Identity Not on file Sexual Orientation Not on file Obstetrics History Last Filed Vital Signs Vital Sign Reading [...] 07/08/2017 9:02 PM CDT Plan of Treatment Health Maintenance Due Date Last Done Comments Depression Screening 1982 Hepatitis C Screening 1982 DTaP/Tdap/Td Vaccine (1 - Tdap) 1993 Varicella Vaccines (1 of 2 - 13+ 2-dose series) 1995 Hepatitis B Screening 2000 Regular Well Visit/Exam 18-64 2000 Influenza Vaccine (#1) 2024 7, 10/03/2015 HPV Vaccines Aged Out No longer eligi ble based on patient's age to complete this topic Pneumococcal vaccine <65 Aged Out No longer eligible based on patient's age to complete this topic Insurance [facility] Care Teams Child Welfare Caseworker Relationship Specialty Start Date End Date Jose Hurtado MD PCP - General 03/24/17
--- OUTSIDE RECORDS SUMMARY | 2025-01-10 16:39 | XMS_ITS | Clinical Summary ---
Author Organization [facility] Address [address] [place] [address] Care Team Providers Care Circus Supervisor Name Role Phone Jose Hurtado MD Primary Care Provider [phone] Source Comments [facility],non-[facility] Affiliates and Associated Physician Practices is amultiple site organization consisting of ambulatory clinics and hospital sitesin [place], [place], [place] and [place]. This disclosure is being madepursuant to the Care Everywhere program and may not contain all information available regarding this patient. Last updated 18.[facility] [employer] Social History Tobacco Use Types Packs/Day Years Used Date Smoking Tobacco: Never Alcohol Use Standard Drinks/Week Comments No 0 (1 standard drink = 0.6 oz pur e alcohol) Sex and Gender Information Value Date Recorded Sex Assigned at Not on file Gender Identity Not on file Sexual Orientation Not on file Last Filed Vital Signs Vital Sign Reading Time Taken Comments Blood Pressure 132/93 08/25/2015 1:50 AM PRODUCTION SUPERINTENDENT HYDRO Pulse 65 08/25/2015 1:51 AM PRODUCTION SUPERINTENDENT HYDRO Temperature 37.1 C (98.7 F) 08/25/2015 1:31 AM PRODUCTION SUPERINTENDENT HYDRO Respiratory Rate 16 08/25/2015 1:31 AM PRODUCTION SUPERINTENDENT HYDRO Oxygen Saturation 100% 08/25/2015 1:51 AM PRODUCTION SUPERINTENDENT HYDRO Inhaled Oxygen Concentration - - Weight 111.1 kg (245 lb) 08/25/2015 1:31 AM PRODUCTION SUPERINTENDENT HYDRO Height 177.8 cm (5' 10 ) 08/25/2015 1:31 AM PRODUCTION SUPERINTENDENT HYDRO Body Mass Index 35.15 08/25/2015 1:31 AM PRODUCTION SUPERINTENDENT HYDRO Plan of Treatment Health Maintenance Due Date Last Done Comments LIPID TESTING 1982 HIV SCREENING 1997 HEPATITIS C SCREENING 08/27/2000 DTAP/TDAP/TD VACCINES (1 - Tdap) 2001 HEPATITIS B VACCINE (1 of 3 - 19+ 3-dose series) 2001 COVID-19 VACCINE (1 - 2023-2 5 season) 2024 INFLUENZA VACCINE (#1) 2024 DEPRESSION SCREENING 10/13/2024 ZOSTER VACCINE (1 of 2) 2032 HIB VACCINE Aged Out No longer eligi ble based on patient's age to complete this topic HPV VACCINE Aged Out No longer eligi ble based on patient's age to complete this topic MENINGOCOCCAL (Group B) VACC INE SHARED DECISION-MAKING Aged Out No longer eligibl e based on patient's age to complete this topic MENINGOCOCCAL GROUPS A/C/Y/W VACCINE Aged Out No longer eligible b ased on patient's age to complete this topic PNEUMOCOCCAL VACCINE Aged Out No long er eligible based on patient's age to complete this topic Care Teams Circus Supervisor Relationship Specialty Start Date End Date Jose Hurtado MD PCP - General 08/25/15
--- OUTSIDE RECORDS SUMMARY | 2025-01-10 16:39 | XMS_ITS | Clinical Summary ---
Author Organization [facility] Address [address], [address] [address] Phone Care Team Providers Care Manager Media Name Role Phone Jose Hurtado MD Primary Care Provider [phone] Allergies No known active allergies Medications citalopram (CELEXA) 40 MG Tablet Take by mouth. 06/19/2017 Active buPROPion SR (WELLBUTRIN SR) 150 MG TABLET SR 12 HR Take by mouth. 06/25/2017 Active clonazePAM (KLONOPIN) 1 MG Tablet Take by mouth. 11/11/2014 Active raNITIdine (ZANTAC) 150 MG Tablet Take by mouth. 06/24/2017 Active Ferrous Sulfate (IRON) 325 (65 Fe) MG Tablet Take by mouth. 02/18/2018 Active Ascorbic Acid (VITAMIN C PO) Take by mouth. Active Family History Medical History Relation Name Comments Heart Attack Father Cancer Maternal Grandfather Cancer Maternal Grandmother Cancer Paternal Grandfather Heart Disease Paternal Grandfather Cancer Paternal Grandmother Relation Name Status Comments Father Maternal Grandfather Maternal Grandmother Paternal Grandfather Paternal Grandmother Social History Tobacco Use Types Packs/Day Years Used Date Smoking Tobacco: Former Smokeless Tobacco: Never Alcohol Use Standard Drinks/Week Comments No 0 (1 standard drink = 0.6 oz pur e alcohol) Sex and Gender Information Value Date Recorded Sex Assigned at Not on file Legal Sex Male 9:16 AM CDT Gender Identity Not on file Sexual Orientation Not on file Last Filed Vital Signs Vital Sign Reading Time Taken Comments Blood Pressure 110/80 11/13/2018 9:35 AM MILLER HELPER Pulse 90 11/13/2018 9:35 AM MILLER HELPER Temperature - - Respiratory Rate - - Oxygen Saturation 98% 11/13/2018 9:35 AM MILLER HELPER Inhaled Oxygen Concentration - - Weight 125.2 kg (276 lb) 11/13/2018 9:35 AM MILLER HELPER Height 177.8 cm (5' 10 ) 11/13/2018 9:35 AM MILLER HELPER Body Mass Index 39.6 11/13/2018 9:35 AM MILLER HELPER Plan of Treatment Health Maintenance Due Date Last Done Comments Hepatitis C Virus (HCV) Screening 1982 TdaP Immunization 1982 Hepatitis B Immunization (1 of 3 - 19+ 3-dose series) 2001 Influenza Immunization (#1) 2024 SARS-COV-2 Immunization ( season) 2024 Respiratory Syncytial Virus (RSV) Immunization (Adult) (1 - 1-dose 75+ series) 2057 Meningococcal Immunization (ACWY) Aged Out No longer eligible based on patient's age to complete this topic Pneumococcal Immunization Combined Aged Out No longer eligible based on patient's age to complete this topic Rotavirus Immunization Aged Out No lo nger eligible based on patient's age to complete this topic Insurance MEDICAID [employer] Care Teams Manager Media Relationship Specialty Start Date End Date Jose Hurtado MD [address] [place] [address] PCP - General Family Medicine 02/24/18
--- OUTSIDE RECORDS SUMMARY | 2025-01-10 16:39 | XMS_ITS | Clinical Summary ---
Author Organization [facility] Address [facility] [place] [address] Care Team Providers Care Station Engineer Main Line Name Role Phone Jose Hurtado MD Primary Care Provider Allergies No known active allergies Medications buprenorphine-na loxone 8-2 MG SL Tab SL tablet Take 1 tablet by mouth every 6 (six) hours. 09/30/2019 Active TESTOSTERONE CYPIONATE IM Inject 250 mg into the muscle 3 (three) times a week. Active famotidine 40 MG tabletIndication s:Gastroesophage al reflux disease without esophagitis Take 1 tablet (40 mg total) by mouth daily. 90 tablet 3 10/19/2019 Active mirtazapine 45 MG tablet 05/31/2020 Active fish oil (OMEGA-3 FATTY ACID) 1000 MG Cap capsule Take 1,200 mg by mouth daily. Active Multiple Vitamin (ONE-A-DAY MENS OR) Take 1 tablet by mouth daily. Active vitamin C 500 MG tablet Take 500 mg by mouth daily. Active Cholecalciferol (VITAMIN D) 50 MCG (2000 UT) Tab Take 1 tablet by mouth daily. Active ferrous sulfate, 65 mg elemental, 325 (65 FE) MG tablet Take 325 mg by mouth daily with breakfast. Active omeprazole (PRILOSEC) 20 MG capsuleIndicatio ns:Gastroesophag eal reflux disease without esophagitis Take 1 capsule (20 mg total) by mouth daily. 90 capsule 07/12/2020 Active clonazePAM 0.5 MG tablet Take 1 mg by mouth 4 (four) times daily. 07/05/2020 Active CITALOPRAM 40 MG tabletIndication s:Depression Take 1 tablet by mouth once daily 90 tablet 3 07/24/2020 Active Active Problems Problem Noted Date Diagnosed Date Anemia 02/17/2018 Hiccups 11/06/2017 Anxiety disorder 03/20/2016 Insomnia 04/17/2015 Depression 12/07/2014 Depression with anxiety 12/05/2014 Esophageal reflux 12/05/2014 Aortic valve stenosis Family History Medical History Relation Comments Drug Abuse Father Heart Attack Father drug induced Hypertension Father Alcohol Abuse Paternal Grandfather Heart Attack Paternal Grandfather Relation Status Comments Father Alive Maternal Grandfather (Age 71) Maternal Grandmother (Age 62) Mother Alive Paternal Grandfather (Age 87) Paternal Grandmother (Age 82) Sister Alive Social History Tobacco Use Types Packs/Day Years Used Date Smoking Tobacco: Former Cigarettes 2.5 10 2 000 - 2010 Electronic Cigarettes Smokeless Tobacco: Never Comments:Patient uses Vape c urrently Alcohol Use Standard Drinks/Week Comments No 0 (1 standard drink = 0.6 oz pur e alcohol) AUDIT-C Answer Date Recorded Frequency of Alcohol Consumption Never 10/19/2019 Average Number of Drinks Not on file 020 Frequency of Binge Drinking Not on file 04/2020 Sex and Gender Information Value Date Recorded Sex Assigned at Not on file Legal Sex Male 6:31 PM CDT Gender Identity Not on file Sexual Orientation Not on file Last Filed Vital Signs Vital Sign Reading Time Taken Comments Blood Pressure 138/90 07/17/2020 11:34 AM CDT Pulse 87 07/17/2020 11:34 AM CDT Temperature 37.2 C (99 F) 06/13/2020 1:27 PM CDT Respiratory Rate 14 06/13/2020 1:27 PM CDT Oxygen Saturation 98% 06/13/2020 1:27 PM CDT Inhaled Oxygen Concentration - - Weight 137.4 kg (303 lb) 07/17/2020 11:34 AM CDT Height 177.8 cm (5' 10 ) 07/17/2020 11:34 AM CDT Body Mass Index 43.48 07/17/2020 11:34 AM CDT Plan of Treatment Health Maintenance Due Date Last Done Comments Annual Physical 1985 Pneumococcal Vaccine: Pediat rics (0 to 5 Years) and At-Risk Patients (6 to 64 Years) (1 of 2 - PCV) 1988 Hepatitis C 2000 DTaP, Tdap and Td Vaccines ( 1 - Tdap) 2001 Hepatitis B Vaccines (1 of 3 - 19+ 3-dose series) 2001 COVID-19 Vaccine (2023-2 5 season) 2024 Influenza Adult (#1) 2024 HPV Vaccines Aged Out No longer eligi ble based on patient's age to complete this topic Meningococcal B Vaccine Aged Out No l onger eligible based on patient's age to complete this topic Meningococcal Vaccine Aged Out No attila eloisa eligible based on patient's age to complete this topic RSV Immunizations Under 20 Months Aged Out No longer eligible based on patient's age to complete this topic Insurance [employer] Care Teams Station Engineer Main Line Relationship Specialty Start Date End Date Jose Hurtado MD [address] [place] [address] PCP - General 09/18/15
[2025-01-10 16:59] LABS: Thyroid Stimulating Hormone Reflex 2.33 u/IU/mL (0.36-3.74)
== END 2025-01-10 15:03 | disposition home or self-care (01) ==
LOC: CHSLAB 15:05
PROVIDERS: PCP Nurse Practitioner Family; Visit Provider Nurse Practitioner Family
DX: Z00.00 Encounter for general adult medical examination without abnormal findings (principal); Z12.5 Encounter for screening for malignant neoplasm of prostate
CPT/HCPCS: 36415; 80053; 80061; 83036; 84153; 84443; 85025; G0103

== ENCOUNTER 2025-05-23 17:33 | Emergency (ER) | payer OTHER, SELFPAY ==
[2025-05-23 17:35] VITALS: BP 165/95; PULSE 90; RESP 18; TEMP 36.6; O2SAT 97
--- OUTSIDE RECORDS SUMMARY | 2025-05-23 17:36 | XMS_ITS | Clinical Summary ---
Author Organization [facility] Address [facility] [place] [address] Care Team Providers Care Animal Care Supervisor Name Role Phone Jose Hurtado MD Primary Care Provider [phone] Allergies No known active allergies Medications buprenorphine-na [...] 11:34 AM CDT Height 177.8 cm (5' 10) 07/17/2020 11:34 AM CDT Body Mass Index 43.48 07/17/2020 11:34 AM CDT Plan of Treatment Health Maintenance Due Date Last Done Comments Annual Physical 1985 Hepatitis C 2000 DTaP, Tdap and Td Vaccines ( 1 - Tdap) 2001 Hepatitis B Vaccines (1 of 3 - 19+ 3-dose series) 2001 Pneumococcal Vaccine: Pediat rics (0 to 5 Years) and At-Risk Patients (6 to 49 Years) (1 of 2 - PCV) 2001 HPV Vaccines (1 - 3-dose SCD M series) 2009 COVID-19 Vaccine (2023-2 5 season) 2024 Meningococcal B Vaccine Aged Out No l onger eligible based on patient's age to complete this topic Meningococcal Vaccine Aged Out No attila eloisa eligible based on patient's age to complete this topic RSV Immunizations Under 20 Months Aged Out No longer eligible based on patient's age to complete this topic Insurance Care Teams Animal Care Supervisor Relationship Specialty Start Date End Date Jose Hurtado MD [address] [place] [address] PCP - General 09/18/15
--- OUTSIDE RECORDS SUMMARY | 2025-05-23 17:36 | XMS_ITS | Clinical Summary ---
Author Organization [facility] Address [address], [address] [address] Phone Care Team Providers Care Marketing Administrative Assistant Name Role Phone Jose Hurtado MD Primary Care Provider Allergies No known active allergies Medications citalopram [...] Comments Blood Pressure 110/80 11/13/2018 9:35 AM PROPULSION ENGINEER Pulse 90 11/13/2018 9:35 AM PROPULSION ENGINEER Temperature - - Respiratory Rate - - Oxygen Saturation 98% 11/13/2018 9:35 AM PROPULSION ENGINEER Inhaled Oxygen Concentration - - Weight 125.2 kg (276 lb) 11/13/2018 9:35 AM PROPULSION ENGINEER Height 177.8 cm (5' 10) 11/13/2018 9:35 AM PROPULSION ENGINEER Body Mass Index 39.6 11/13/2018 9:35 AM PROPULSION ENGINEER Plan of Treatment Health Maintenance Due Date Last Done Comments Hepatitis C Virus (HCV) Screening 1980 TdaP Immunization 1982 Hepatitis B Immunization (1 of 3 - 19+ 3-dose series) 2001 Human Papillomavirus (HPV) Immunization (1 - 3-dose SCDM series) 2009 SARS-COV-2 Immunization (2023- season) 2024 Influenza Immunization (#1) 2025 Respiratory Syncytial Virus (RSV) Immunization (Adult) (1 [...] Insurance MEDICAID [employer] Care Teams Marketing Administrative Assistant Relationship Specialty Start Date End Date Jose Hurtado MD [address] [place] [address] PCP - General Family Medicine 02/24/18
--- OUTSIDE RECORDS SUMMARY | 2025-05-23 17:36 | XMS_ITS | Clinical Summary ---
Author Organization [facility] Address [address] [place] [address] Care Team Providers Care Proposal Lead Writer Name Role Phone Jose Hurtado MD Primary Care Provider [phone] Source Comments [facility],non-[facility] [place] Affiliates and Associated Physician Practices is amultiple site organization consisting of ambulatory clinics and hospital sitesin [place], [place], [place] and [place]. This disclosure is being madepursuant to the Care Everywhere program and may not contain all information available regarding this patient. 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 Gender Identity Not on file Sexual Orientation Not on file Last Filed Vital Signs Vital Sign Reading Time Taken Comments Blood Pressure 132/93 08/25/2015 1:50 AM CARROTING MACHINE OFFBEARER Pulse 65 08/25/2015 1:51 AM CARROTING MACHINE OFFBEARER Temperature 37.1 C (98.7 F) 08/25/2015 1:31 AM CARROTING MACHINE OFFBEARER Respiratory Rate 16 08/25/2015 1:31 AM CARROTING MACHINE OFFBEARER Oxygen Saturation 100% 08/25/2015 1:51 AM CARROTING MACHINE OFFBEARER Inhaled Oxygen Concentration - - Weight 111.1 kg (245 lb) 08/25/2015 1:31 AM CARROTING MACHINE OFFBEARER Height 177.8 cm (5' 10) 08/25/2015 1:31 AM CARROTING MACHINE OFFBEARER Body Mass Index 35.15 08/25/2015 1:31 AM CARROTING MACHINE OFFBEARER Plan of Treatment Health Maintenance Due Date Last Done Comments LIPID TESTING 1980 HIV SCREENING 1997 HEPATITIS C SCREENING 08/27/2000 DTAP/TDAP/TD VACCINES (1 - Tdap) 2001 HEPATITIS B VACCINE (1 of 3 - 19+ 3-dose series) 2001 HPV VACCINE (1 - 3-dose SCDM series) 2009 COVID-19 VACCINE (1 - 2023-2 5 season) 2024 DEPRESSION SCREENING 10/13/2024 INFLUENZA VACCINE (#1) 2025 ZOSTER VACCINE (1 of 2) 2032 HIB [...] patient's age to complete this topic Insurance [facility] Care Teams Proposal Lead Writer Relationship Specialty Start Date End Date Jose Hurtado MD PCP - General 08/25/15
--- OUTSIDE RECORDS SUMMARY | 2025-05-23 17:37 | XMS_ITS | Clinical Summary ---
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 Gender Identity Not on file Sexual Orientation [...] 9:02 PM CDT Height 175.3 cm (5' 9) 07/08/2017 9:02 PM CDT Body Mass Index 38.39 07/08/2017 9:02 PM CDT Plan of Treatment Health Maintenance Due Date Last Done Comments Depression Screening 1980 Hepatitis C Screening 1982 DTaP/Tdap/Td Vaccine (1 - Tdap) 1993 Varicella Vaccines (1 of 2 - 13+ 2-dose series) 1995 Hepatitis B Screening 2000 Regular Well Visit/Exam 18-64 2000 HPV Vaccines (1 - 3-dose SCD M series) 2009 Influenza Vaccine (#1) 2025 7, 10/03/2015 Pneumococcal vaccine <65 Aged Out No longer eligible based on patient's age to complete this topic Insurance [facility] Care Teams Interim Controller Relationship Specialty Start Date End Date Jose Hurtado MD PCP - General 03/24/17
--- OUTSIDE RECORDS SUMMARY | 2025-05-23 17:37 | XMS_ITS | Patient Health Record ---
Author Organization [facility] Address [address] [place] [address] Care Team Providers Care Food Service Lead Name Role Phone Murphy Loza Primary Care Provider Kyra Tamez Unavailable [phone] Layla Curry Unavailable [phone] Chencho Levin Unavailable [phone] Keyur Parson Unavailable [phone] Linnette Stearns Unavailable Regina Plasencia Unavailable [phone] José Miguel Mckee Unavailable Allergies No Known Allergies Results Component Value Reference Range Notes 12 Panel Urine Drug Screen Reviewed date:02/28/2025 09:40:50 AM Interpretation: Performing Lab: Notes/Report: THC neg [...] POS 12 Panel Urine Drug Screen Reviewed date:06/17/2024 [...] POS 12 Panel Urine Drug Screen Reviewed date:01/27/2025 01:15:33 PM Interpretation: Performing Lab: Notes/Report: THC neg [...] POS 12 Panel Urine Drug Screen Reviewed date:10/04/2024 01:28:23 PM Interpretation: Performing Lab: Notes/Report: THC neg LORA neg MOP (OPI) neg AMP neg MET neg BAR neg BZO neg MDMA neg MTD neg OXY neg PCP neg BUP pos 14 Panel Urine Drug Screen Reviewed date:03/29/2025 08:25:30 AM Interpretation: Performing Lab: Notes/Report: THC neg LORA neg MOP (OPI) neg AMP neg MET neg BAR neg BZO neg MDMA neg MTD neg OXY neg PCP neg BUP POS TCA neg FTY neg 14 Panel Urine Drug Screen Reviewed date:04/26/2025 01:18:11 PM Interpretation: Performing Lab: Notes/Report: THC neg LORA neg MOP (OPI) neg AMP neg MET neg BAR neg BZO neg MDMA neg MTD neg OXY neg PCP neg BUP POS TCA neg FTY neg 12 Panel Urine Drug Screen Reviewed date:12/29/2024 01:42:54 PM Interpretation: Performing Lab: Notes/Report: THC neg LORA neg MOP (OPI) neg AMP neg MET neg BAR neg BZO neg MDMA neg MTD neg OXY neg PCP neg BUP POS Reason For Referral No Information Medications Medication SIG (Take, Route, Frequency, Duration) Notes Start Date End Date Status Escitalopram Oxalate 20 MG 1 tablet Oral ly Once a day; Duration: 4 days Active buPROPion HCl ER (XL) 300 MG TAKE 1 TABLET BY MOUTH EVERY DAY AT THE MORNING FOR 30 DAYS; Duration: 90 days Active Mirtazapine 45 MG TAKE 1 TABLET BY TRINA TH EVERY DAY AT BEDTIME FOR 30 DAYS; Duration: 90 days Active Buprenorphine HCl-Naloxone HCl 4-1 MG 1 film under the tongue and allow to dissolve Sublingual Once a day; Duration: 7 days As needed for opioid withdrawal 04/26/2025 Active Sublocade 300 MG/1.5ML 1.5 mL Subcutaneo us every 28 days 02/28/2025 Active KlonoPIN 1 MG 1 tablet Orally ever y 12 hours; Duration: 7 days 05/23/2025 Active KlonoPIN 0.5 MG 0.5 teblet Orally every other day; Duration: 32 days between 1 mg doses 03/15/2025 Active Gabapentin 600 MG 1 tablet Orally Thre e times daily; Duration: 30 days Active Immunizations Vaccine Route Administration Date Status Comme nts FLU VAC NO PRSV 4VAL 6 mo+ IM Intramuscular 08/10/2024 Administered Vanda Faulkner 08/10/2024 04:10 PM CDT >Given LMD, tolerated well. [facility] [id number] Social History Tobacco Use: Social History Observation Description Date Details (start date - stop date) Current Smoker NA - NA Sex Assigned At : Social History Observation Description Sex Assigned At Male Tobacco Control (Standard) Question Answer Notes Tobacco use: Current smoker Additional Findings: Tobacco user e-cigarette AUDIT-C (Standard) Question Answer Notes Did you have a drink containing alcohol in the p ast year? No Points 0 Interpretation Negative Problems Problem Type SNOMED Code ICD Code Onset Dates Problem Status W/U Status Risk Notes Problem Tobacco user (402852963) Nicotine dependence, unspecified, uncomplicated (F17.200) Active confirmed Problem Severe recurrent major depression without psychotic features (17441293) Major depressive disorder, recurrent severe without psychotic features (F33.2) Active confirmed Problem Major depression (500682407) Major depression (F32.9) 03/11/20 24 Active confirmed Problem Anxiety (82877769) Anxiety (F41.9) Active confirmed Problem Thyroid nodule (823773511) Thyroid nodule (E04.1) Active confirmed Problem Obstructive sleep apnea (22861578) Obstructive sleep apnea (G47.33) 03/11/20 24 Active confirmed Problem Overweight (434885111) Over weight (E66.3) Active confirmed Problem Benzodiazepine dependence (848405015) Benzodiazepine dependence (F13.20) Active confirmed Problem Obesity (317520306) Obesity (BMI 30-39.9) (E66.9) Active confirmed Problem Body mass index 30+ - obesity (249054015) Body mass index (BMI) of 30.0-30.9 in adult (Z68.30) Active confirmed Problem Obesity (147255554) Obesity, unspecified classification, unspecified obesity type, unspecified whether serious comorbidity present (E66.9) Active confirmed Problem Steatosis of liver (436004950) Hepatic steatosis (K76.0) Active confirmed Problem Opioid use disorder (4734706964) Opioid use disorder (F11.99) 03/11/20 24 Active confirmed Problem History of cancer (527315800) History of cancer (Z85.9) 10/13/19 17 Active confirmed Vital Signs Heart Rate 101 /min 04/26/2025 Temperature 98.6 degrees Fahrenheit 11/02/2024 Respiratory Rate 15 /min 04/26/2025 Oximetry 97 % 04/26/2025 Blood pressure diastolic 82 mm Hg 04/26/2025 Height 70 in 04/26/2025 Blood pressure systolic 124 mm Hg 04/26/2025 Weight 298.0 lbs 04/26/2025 BMI 42.75 kg/m2 04/26/2025 Encounters Encounter Location Date Provider Diagnosis [address] [place] [address] 06/02/2024 Keyur Parson Major depression F32.9 and Anxiety F41.[address] [place] [address] 06/17/2024 Chencho Levin Opioid use disorder F11.99 ; Obesity (BMI 30-39.9) E66.9 ; Nutritional counseling Z71.3 and Nicotine dependence, unspecified, uncomplicated F17.[address] [address] 07/19/2024 Regina Plasencia Opioid use disorder F11.99 ; Nicotine dependence, unspecified, uncomplicated F17.200 ; Obesity (BMI 30-39.9) E66.9 and Nutritional counseling Z71.3 [facility] [address] [place] [address] 08/10/2024 Kyra Tamez Encounter for immunization Z23 ; Major depression F32.9 and Anxiety F41.[address] [place] [address] 08/16/2024 Murphy Loza Opioid use disorder F11.99 and Nutritional counseling Z71.[address] [place] [address] 09/13/2024 Murphycharlie Loza Opioid use disorder F11.[address] [place] [address] 10/04/2024 Regina Szlufik Opioid use disorder F11.[address] [place] [address] 11/02/2024 Regina Szlufik Opioid use disorder F11.99 and Nutritional counseling Z71.3 [facility] [address] [place] [address] 11/09/2024 Kyra Tamez Major depression F32.9 and Anxiety F41.[address] [place] [address] 11/29/2024 Regina Szlufik Opioid use disorder F11.[address] [place] [address] 12/29/2024 Regina Szlufik Opioid use disorder F11.[address] [place] [address] 01/27/2025 Regina Szlufik Opioid use disorder F11.99 and Over weight E66.3 [facility] [address], [place] [address] 01/27/2025 José Miguel Mckee [address] [place] [address] 02/03/2025 Murphy Loza Over weight E66.3 and Benzodiazepine dependence F13.[address] [address] 02/21/2025 Kyra Tamez Major depression F32.9 ; Anxiety F41.9 and Over weight E66.[address] [address] 02/28/2025 Regina Plasencia Opioid use disorder F11.99 and Over weight E66.[address] [address] 03/15/2025 Murphy Loza Benzodiazepine dependence F13.[address] [address] 03/29/2025 Regina Plasencia Over weight E66.3 and Opioid use disorder F11.[address] [address] 04/12/2025 Murphy Loza Opioid use disorder F11.99 ; Hepatic steatosis K76.0 and Benzodiazepine dependence F13.20 [facility] [address] [place] [address] 04/26/2025 Linnettejames Stearns Opioid use disorder F11.99 and Nicotine dependence, unspecified, uncomplicated F17.[address] [address] 05/23/2025 Murphy Loza [address] [address] 05/24/2024 Murphy Loza [facility] [address] [place] [address] 10/22/2024 Kyra Tamez Major depression F32.[address] [address] 12/29/2024 Regina Plasencia [address] [place] [address] 02/08/2025 Murphy Loza Anxiety F41.9 [facility] [address] [place] [address] 02/11/2025 Kyra Tamez Major depression F32.9 and Anxiety F41.[address] [address] 02/25/2025 Murphy Loza Anxiety F41.[address] [address] 03/09/2025 Murphy Loza [address] [address] 03/14/2025 Murphy Loza [place] [address] [place] [address] 03/15/2025 Murphy Loza [facility] [address] [place] [address] 05/02/2025 Murphy Loza [address] [address] 05/10/2025 Murphy Loza Benzodiazepine dependence F13.[address] [address] 05/23/2025 Murphy Loza Benzodiazepine dependence F13.[address] [address] 04/02/2025 Murphy Loza [address] [address] 05/23/2025 Kyra Tamez Major depression F32.9 Assessments Encounter Date Diagnosis (ICD Code) Assessment Notes Treatment Notes Treatment Clinical Notes Section Notes 03/15/2025 Benzodiazepine dependence (ICD-10 - F13.20) 04/12/2025 Opioid use disorder (ICD-10 - F11.99) 04/26/2025 Nicotine dependence, unspecified, uncomplicated (ICD-10 - F17.200) 04/26/2025 Opioid use disorder (ICD-10 - F11.99) 05/10/2025 Benzodiazepine dependence (ICD-10 - F13.20) 05/23/2025 Benzodiazepine dependence (ICD-10 - F13.20) 05/23/2025 Major depression (ICD-10 - F32.9) 04/12/2025 Hepatic steatosis (ICD-10 - K76.0) CONTINUE TO WORK ON DIET, WEIGHT 03/29/2025 Over weight (ICD-10 - E66.3) 03/29/2025 Opioid use disorder (ICD-10 - F11.99) 02/21/2025 Major depression (ICD-10 - F32.9) 02/25/2025 Anxiety (ICD-10 - F41.9) 02/28/2025 Over weight (ICD-10 - E66.3) 02/28/2025 Opioid use disorder (ICD-10 - F11.99) 06/02/2024 Major depression (ICD-10 - F32.9) 06/17/2024 Obesity (BMI 30-39.9) (ICD-10 - E66.9) [...] 12/29/2024 Opioid use disorder (ICD-10 - F11.99) 01/27/2025 Opioid use disorder (ICD-10 - F11.99) 02/03/2025 Over weight (ICD-10 - E66.3) 02/03/2025 Benzodiazepine dependence (ICD-10 - F13.20) HE WILL CALL FOR REFILL ON 02/10 WHEN IT IS DUE. HE AGREES TO TAPER KLONOPIN BY 0.25 MG PER MONTH FOR NOW. REFILL WILL BE FOR 1 MG BID AND 0.75 MG IN THE AFTERNOON. 02/08/2025 Anxiety (ICD-10 - F41.9) 02/11/2025 Major depression (ICD-10 - F32.9) 02/11/2025 Anxiety (ICD-10 - F41.9) 01/27/2025 Over weight (ICD-10 - E66.3) 08/16/2024 Nutritional counseling (ICD-10 - Z71.3) 11/09/2024 Anxiety (ICD-10 - F41.9) 08/10/2024 Major depression (ICD-10 - F32.9) 07/19/2024 Obesity (BMI 30-39.9) (ICD-10 - E66.9) 06/17/2024 Nutritional counseling (ICD-10 - Z71.3) 06/02/2024 Anxiety (ICD-10 - F41.9) 02/21/2025 Anxiety (ICD-10 - F41.9) 04/12/2025 Benzodiazepine dependence (ICD-10 - F13.20) CONTINUE WEAN 02/21/2025 Over weight (ICD-10 - E66.3) 06/17/2024 Nicotine dependence, unspecified, uncomplicated (ICD-10 - F17.200) 07/19/2024 Nutritional counseling (ICD-10 - Z71.3) 08/10/2024 Anxiety (ICD-10 - F41.9) 06/02/2024 Other Discussed sleep hygiene and caffeine [...] number to the 24-hour crisis line at [facility]. Questions addressed. Client verbalized understanding of all [...] may self-administer their own oral medications per [facility] Protocol. 12/29/2024 Other Provided list of shelters. Message sent to [facility] for additional housing resources. Patient agrees to [...] may self-administer their own oral medications per [facility] Protocol. May not self-administer Sublocade. 01/27/2025 Other Met with health navigator [facility] for [facility] resources Patient agrees to take medication as prescribed. [...] services. Contact office with questions or concerns. Patient may self-administer their own medications or may self-administer their own oral medications per [facility] Protocol. 02/21/2025 Other Provider talked with SHOBHA Silva about housing. Warm handoff done, client talking with [facility]. Reasons, potential benefits, potential risks, interactions and [...] May also contact the 24-hour crisis hotline ([facility]), refer to the closest emergency [...] of education, treatment plan and follow up. 02/28/2025 Other Patient agrees to take medication as [...] services. Contact office with questions or concerns. 03/29/2025 Other Patient agrees to take medication as [...] services. Contact office with questions or concerns. Patient may self-administer their own medications or may self-administer their own oral medications per [facility] Protocol. May not self-administer Sublocade. 04/12/2025 Other DOING WELL NOW. CONTINUE SUBLOCADE [place] ISSUES 04/26/2025 Other Patient agrees to take medication as prescribed. Discussed medication side effects, adverse effects, risks, benefits, as well as interactions. Encouraged non-use of opioids. Encouraged participation in recovery groups. Patient may contact office with questions or concerns. Plan Of Treatment Future Test Test Name Order Date Chest X-ray PA and lateral 05/24/2024 Next Appt Details Provider Name:Murphy Loza , 05/26/2025 09:00:00 AM, [address], [place], [address], Insurance Providers Payer Name Payer Address Payer Phone Subscriber Number Group Number Insured Name Patient Relationship to Insured Coverage Start Date Coverage End Date [facility] Att[facility] Claims Department [address] [place] [id number] Ramirez Trevizo Self - patient is the insured 4 [facility] [address] [place] [address] [id number] Ramirez Trevizo Self - patient is the insured 4 Medications Administered Medication Instructions Date of Administration Dosage Notes Sublocade 10/04/2024 300 mg SukhdeepChelsey aragon RN 10/04/2024 02:49:36 PM WEEKDAY BABYSITTER >pt tolerated well. minimal discomfort observed or reported. Sublocade 11/02/2024 300 mg SukhdeepChelsey aragon RN 11/02/2024 09:53:51 AM WEEKDAY BABYSITTER >administered to the right lower quadrant of the abdomen. Pt tolerated well with minimal discomfort observed or reported. Sublocade 11/29/2024 300 mg Wilbert, Natalie L 11/29/2024 02:39:08 PM WEEKDAY BABYSITTER >Pt tolerated well. No s&s of adverse reaction. Sublocade 12/29/2024 300 mg Wilbert, Natalie L 12/29/2024 02:52:57 PM CDT > PT tolerated well. No s&s of adverse reaction. Sublocade 01/27/2025 300 mg Sublocade 02/28/2025 300 mg Sublocade 03/29/2025 300 mg Wilbert, Natalie L 03/29/2025 09:01:19 AM CDT > Pt tolerated well. No s&s adverse reaction. Sublocade 04/26/2025 300 mg Silvana WHITING, Delaney Terry 04/26/2025 01:54:30 PM CDT >manufact Indivior, patient tolerated well. 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
--- OUTSIDE RECORDS SUMMARY | 2025-05-23 17:37 | XMS_ITS ---
Author Organization [facility] Address [address] [place] [address] Care Team Providers Care Chief Station Engineer Name Role Phone Murphy Loza Primary Care Provider Kyra Tamez Unavailable [phone] Layla Curry Unavailable [phone] REASON FOR VISIT 2 Week F/U Social History Sex Assigned At : Social History Observation Description Sex Assigned At Male Encounters Encounter Location Date Provider Diagnosis [facility] [address] [address] 05/10/2025 Murphy Loza Plan Of Treatment Next Appt Details Provider Name:Murphy Loza , 05/26/2025 09:00:00 AM, [address] [place], [address], Progress Notes * Ramirez HOLLIDAY RDOB:1980 (44 yo M)Acc No.[id number]:05/10/2025 UNLOCKED PROGRESS NOTE Progress Notes Patient: Ramirez CAMP Provider: Yazan Loza :1980 A ge:44 Y S ex:Male Date:05/10/2025 Phone: Address:[address] [place] [id number] Subjective: * Chief Complaints: * 1 . 2 Week F/U. * Medical History: Objective: * Vitals: Assessment: Plan: * Treatment: * * Electronic signature of Yue Loza [id number] on 05/23/2025 at 05:36 PM CDT Sign off status: Pending * Provider: Yazan Loza Date: 0 05/10/2025 Generated for Rudolph Jennings on: 0 05/23/2025 05:36 PM CDT
--- NOTE | 2025-05-23 17:47 | ED_ITS ---
HPI - General Adult General Stated complaint: medicine refill Time Seen by Provider: 05/23/25 17:40 Source: patient Mode of arrival: ambulatory Limitations: no limitations History of Present Illness HPI narrative: PATIENT HAD A PRESCRIPTION OF KLONOPIN BY HIS DOCTOR TODAY, THE PHARMACY IS CLOSED, PATIENT CURRENTLY ON 1 MG OF KLONOPIN TWICE A DAY AND 0.5 MG AT NOON. LAST KLONOPIN INTAKE WAS LAST NIGHT. PATIENT DENIES ANY FEVER, CHILLS, NAUSEA, VOMITING, CHEST PAIN, SHORTNESS OF BREATH, HEADACHE, SUICIDAL OR HOMICIDAL IDEATION. PATIENT CONCERN ABOUT THE POSSIBILITY OF KLONOPIN WITHDRAWAL Related Data Home Medications ?Medication ?Instructions ?Recorded ?Confirmed ?Last Taken ?Type mirtazapine 45 mg tablet 45 mg PO HS 01/27/23 04/05/24 Unknown History escitalopram oxalate 20 mg tablet 20 mg PO DAILY 04/02/24 04/05/24 04/05/24 History gabapentin 600 mg tablet 600 mg PO TID 04/02/24 04/05/24 04/05/24 History buprenorphine 4 mg-naloxone 1 mg film sublingual 01/10/25 01/10/25 Unknown History sublingual film bupropion HCl 300 mg 24 hr tablet, mg PO 01/10/25 01/10/25 Unknown History extended release clonazepam 1 mg tablet 1 mg PO TID 01/10/25 01/10/25 Unknown History Allergies Allergy/AdvReac Type Severity Reaction Status Date / Time No Known Allergies Allergy Verified 01/10/25 14:10 Review of Systems Review of Systems: All systems reviewed & are unremarkable except as noted in HPI and below PMFSH Past Medical History Medical History GERD (gastroesophageal reflux disease) Giant cell tumor of bone Opioid use disorder Family History Family History Mother Lung cancer Grandparent Lung cancer Hypertension Malignant neoplasm of prostate AA (aortic aneurysm) Father Heart attack Polysubstance abuse Social History Social History Smoking status: Never smoker Alcohol intake: never Alcohol use details: does not drink with current medications Substance use: former Substance use type: opiates Exam Narrative: GENERAL APPEARANCE: WELL-DEVELOPED, WELL-NOURISHED SLIGHTLY ANXIOUS SKIN: NORMAL COLOR HEAD: NORMOCEPHALIC, NONTRAUMATIC EYES: CLEAR CONJUNCTIVA ENT: OROPHARYNX NORMAL, EARS NORMAL, NOSE NORMAL NECK: SUPPLE, NONTENDER CHEST AND RESPIRATORY: AIRWAY PATENT, NO RESPIRATORY DISTRESS, NO ACCESSORY MUSCLE USE HEART: REGULAR RATE/RHYTHM MUSCULOSKELETAL: NORMAL RANGE OF MOTION, NONTENDER BACK NEUROLOGIC: ALERT AND ORIENTED ?3, GOVERNMENT AFFAIRS RESEARCHER IS NORMAL TESTED, NO GROSS MOTOR DEFICIT Course Vital Signs Vital signs: Vital Signs Temperature 36.6 C 05/23/25 17:35 Pulse Rate 90 05/23/25 17:35 Respiratory Rate 18 05/23/25 17:35 Blood Pressure 165/95 H 05/23/25 17:35 Pulse Oximetry 97 05/23/25 17:35 Oxygen Delivery Room Air 05/23/25 17:35 Temperature 36.6 C 05/23/25 17:35 Pulse Rate 90 05/23/25 17:35 Respiratory Rate 18 05/23/25 17:35 Blood Pressure 165/95 H 05/23/25 17:35 Pulse Oximetry 97 05/23/25 17:35 Oxygen Delivery Room Air 05/23/25 17:35 Medical Decision Making Vital Signs Vital Signs: Vital Signs Temperature 36.6 C 05/23/25 17:35 Pulse Rate 90 05/23/25 17:35 Respiratory Rate 18 05/23/25 17:35 Blood Pressure 165/95 H 05/23/25 17:35 Pulse Oximetry 97 05/23/25 17:35 Oxygen Delivery Room Air 05/23/25 17:35 Temperature 36.6 C 05/23/25 17:35 Pulse Rate 90 05/23/25 17:35 Respiratory Rate 18 05/23/25 17:35 Blood Pressure 165/95 H 05/23/25 17:35 Pulse Oximetry 97 05/23/25 17:35 Oxygen Delivery Room Air 05/23/25 17:35 Critical Care Time Critical Care Time Critical Care Time: No Discharge Plan Discharge Clinical Impression: Anxiety Patient Disposition: Home Condition: Stable Instructions: Anxiety (ED) Patient Language: Azeri Prescriptions: No Action mirtazapine 45 mg tablet 45 mg PO HS clonazepam 1 mg tablet 1 mg PO TID buprenorphine-naloxone 4-1 mg film sublingual bupropion HCl 300 mg tablet extended release 24 hr PO omeprazole 40 mg capsule,delayed release(DR/EC) 40 mg PO DAILY Qty: 90 0RF gabapentin 600 mg Tablet 600 mg PO TID escitalopram oxalate 20 mg Tablet 20 mg PO DAILY tamsulosin 0.4 mg capsule See Rx Instructions .ROUTE .COMPLEX Qty: 90 0RF Dose Instruction: TAKE 1 CAPSULE BY MOUTH EVERY DAY Rx Instructions: TAKE 1 CAPSULE BY MOUTH EVERY DAY Follow-up/Referrals: Murphy Loza MD [Primary Care Provider] -
[2025-05-23] MEDS: clonazePAM (*CRX) 0.5 MG TABLET 1 MG PO (18:20)
== END 2025-05-23 18:35 | disposition home or self-care (01) ==
PROVIDERS: Emergency Provider Emergency Medicine; PCP Internal Medicine
DX: Z76.0 Encounter for issue of repeat prescription (principal); F41.9 Anxiety disorder, unspecified
CPT/HCPCS: 99283; A9270

== ENCOUNTER 2025-07-06 12:28 | Outpatient (CLI) | payer OTHER, SELFPAY ==
--- OUTSIDE RECORDS SUMMARY | 2025-05-10 08:00 | XMS_ITS ---
Author Organization [facility] Address [address] [place] [address] Care Team Providers Care Fruit Cutter Name Role Phone Murphy Loza Primary Care Provider Kyra Tamez Unavailable [phone] Layla Curry Unavailable [phone] REASON FOR VISIT 2 Week F/U Social History Sex Assigned At : Social History Observation Description Sex Assigned At Male Encounters Encounter Location Date Provider Diagnosis [address] [address] 05/10/2025 Murphy Loza Plan Of Treatment Next Appt Details Provider Name:Kyra byrd, 07/06/2025 02:20:00 PM, [address] [place] [address], [phone], Progress Notes * Ramirez HOLLIDAY RDOB:1980 (44 yo M)Acc No.[id number]:05/10/2025 UNLOCKED PROGRESS NOTE Progress Notes Patient: Sun BISHOP Ramirez Denice Provider: Yazan Loza :1980 A ge:44 Y S ex:Male Date:05/10/2025 Address:[address] [place], [place] [id number] Subjective: * Chief Complaints: * 1 . 2 Week F/U. * Medical History: Objective: * Vitals: Assessment: Plan: * Treatment: * * Electronic signature of Yue Loza , [id number] on 07/06/2025 at 12:40 PM CDT Sign off status: Pending * Provider: Yazan Loza Date: 0 05/10/2025 Generated for Rudolph archuleta/Jasmyne/Rik on: 0 07/06/2025 12:40 PM CDT
--- OUTSIDE RECORDS SUMMARY | 2025-07-06 12:40 | XMS_ITS | Clinical Summary ---
Author Organization [facility] Address [facility] [place] [address] Care Team Providers Care Plastic Tool Maker Name Role Phone Jose Hurtado MD Primary Care Provider [phone] Allergies No known active allergies Medications buprenorphine-na [...] series) 2009 COVID-19 Vaccine (2023-2 5 season) 2025 Meningococcal B Vaccine Aged Out No l onger eligible based on patient's age to complete this topic Meningococcal Vaccine Aged Out No attila eloisa eligible based on patient's age to complete this topic RSV Immunizations Under 20 Months Aged Out No longer eligible based on patient's age to complete this topic Insurance Care Teams Plastic Tool Maker Relationship Specialty Start Date End Date Jose Hurtado MD [address] [place] [address] PCP - General 09/18/15
--- OUTSIDE RECORDS SUMMARY | 2025-07-06 12:40 | XMS_ITS | Clinical Summary ---
Author Organization [facility] Address [address] [place] [address] Care Team Providers Care Pesticide Chemist Name Role Phone Jose Hurtado MD Primary Care Provider [phone] Source Comments [facility] Affiliates and Associated Physician Practices is amultiple site organization consisting of ambulatory clinics and hospital sitesin [place], [place], [place] and [place]. This disclosure is being madepursuant to the Care Everywhere program and may not contain all information available regarding this patient. Last updated 18.[facility] [employer] Social History Tobacco Use Types Packs/Day Years Used Date Smoking Tobacco: Never Alcohol Use Standard Drinks/Week Comments No 0 (1 standard drink = 0.6 oz pur e alcohol) Sex and Gender Information Value Date Recorded Sex Assigned at Not on file Legal Sex Male 6:08 PM SENIOR BRANCH MANAGER Gender Identity Not on file Sexual Orientation Not on file Last Filed Vital Signs Vital Sign Reading Time Taken Comments Blood Pressure 132/93 08/25/2015 1:50 AM SENIOR BRANCH MANAGER Pulse 65 08/25/2015 1:51 AM SENIOR BRANCH MANAGER Temperature 37.1 C (98.7 F) 08/25/2015 1:31 AM SENIOR BRANCH MANAGER Respiratory Rate 16 08/25/2015 1:31 AM SENIOR BRANCH MANAGER Oxygen Saturation 100% 08/25/2015 1:51 AM SENIOR BRANCH MANAGER Inhaled Oxygen Concentration - - Weight 111.1 kg (245 lb) 08/25/2015 1:31 AM SENIOR BRANCH MANAGER Height 177.8 cm (5' 10) 08/25/2015 1:31 AM SENIOR BRANCH MANAGER Body Mass Index 35.15 08/25/2015 1:31 AM SENIOR BRANCH MANAGER Plan of Treatment Health Maintenance Due Date Last Done Comments LIPID TESTING 1982 HIV SCREENING 1997 HEPATITIS C SCREENING 08/27/2000 DTAP/TDAP/TD VACCINES (1 - Tdap) 2001 HEPATITIS B VACCINE (1 of 3 - 19+ 3-dose series) 2001 HPV VACCINE (1 - 3-dose SCDM series) 2009 DEPRESSION SCREENING 10/13/2024 COVID-19 VACCINE (1 - 2023-2 5 season) 2025 INFLUENZA VACCINE (#1) 2025 ZOSTER VACCINE (1 [...] age to complete this topic Insurance [facility] Care Teams Pesticide Chemist Relationship Specialty Start Date End Date Jose Hurtado MD PCP - General 08/25/15
--- OUTSIDE RECORDS SUMMARY | 2025-07-06 12:40 | XMS_ITS | Clinical Summary ---
Author Organization [facility] Address [address], [address] [address] Phone Care Team Providers Care Contact Finger Assembler Name Role Phone Jose Hurtado MD Primary Care Provider [phone] Allergies No known active allergies Medications citalopram [...] Comments Blood Pressure 110/80 11/13/2018 9:35 AM OCULAR CARE TECHNICIAN Pulse 90 11/13/2018 9:35 AM OCULAR CARE TECHNICIAN Temperature - - Respiratory Rate - - Oxygen Saturation 98% 11/13/2018 9:35 AM OCULAR CARE TECHNICIAN Inhaled Oxygen Concentration - - Weight 125.2 kg (276 lb) 11/13/2018 9:35 AM OCULAR CARE TECHNICIAN Height 177.8 cm (5' 10) 11/13/2018 9:35 AM OCULAR CARE TECHNICIAN Body Mass Index 39.6 11/13/2018 9:35 AM OCULAR CARE TECHNICIAN Plan of Treatment Health Maintenance Due Date Last Done Comments Hepatitis C Virus (HCV) Screening 1982 TdaP Immunization 1982 Hepatitis B Immunization (1 of 3 - 19+ 3-dose series) 2001 Human Papillomavirus (HPV) Immunization (1 - 3-dose SCDM series) 2009 Influenza Immunization (#1) 2025 SARS-COV-2 Immunization ( - season) 2025 Respiratory Syncytial Virus (RSV) Immunization (Adult) [...] Insurance MEDICAID [employer] Care Teams Contact Finger Assembler Relationship Specialty Start Date End Date Jose Hurtado MD [address] [place] [address] PCP - General Family Medicine 02/24/18
--- OUTSIDE RECORDS SUMMARY | 2025-07-06 12:40 | XMS_ITS | Patient Health Record ---
Author Organization [facility] Address [address] [place] [address] Care Team Providers Care Stone Setter Apprentice Name Role Phone Murphy Loza Primary Care Provider [phone] Kyra Tamez Unavailable [phone] Layla Curry Unavailable [phone] Linnette Stearns Unavailable Regina Plasencia Unavailable [phone] José Miguel Mckee Unavailable Allergies No Known Allergies Results Component Value Reference Range Notes 12 Panel Urine Drug Screen Reviewed date:11/02/2024 [...] neg OXY neg PCP neg BUP POS 14 Panel Urine Drug Screen Reviewed date:04/26/2025 01:18:11 PM Interpretation: Performing Lab: Notes/Report: THC neg LORA neg MOP (OPI) neg AMP neg MET neg BAR neg BZO neg MDMA neg MTD neg OXY neg PCP neg BUP POS TCA neg FTY neg 14 Panel Urine Drug Screen Reviewed date:06/23/2025 12:20:45 PM Interpretation: Performing Lab: Notes/Report: THC neg LORA neg MOP (OPI) neg AMP neg MET neg BAR neg BZO neg MDMA neg MTD neg OXY neg PCP neg BUP POS TCA neg FTY neg 12 Panel Urine Drug Screen Reviewed date:10/04/2024 01:28:23 PM Interpretation: Performing Lab: Notes/Report: THC neg LORA neg MOP (OPI) neg AMP neg MET neg BAR neg BZO neg MDMA neg MTD neg OXY neg PCP neg BUP pos 12 Panel Urine Drug Screen Reviewed date:07/19/2024 [...] POS 12 Panel Urine Drug Screen Reviewed date:12/29/2024 01:42:54 PM Interpretation: Performing Lab: Notes/Report: THC neg LORA neg MOP (OPI) neg AMP neg MET neg BAR neg BZO neg MDMA neg MTD neg OXY neg PCP neg BUP POS 12 Panel Urine Drug Screen Reviewed date:02/28/2025 09:40:50 AM Interpretation: Performing Lab: Notes/Report: THC neg LORA neg MOP (OPI) neg AMP neg MET neg BAR neg BZO neg MDMA neg MTD neg OXY neg PCP neg BUP POS 14 Panel Urine Drug Screen Reviewed date:03/29/2025 08:25:30 AM Interpretation: Performing Lab: Notes/Report: THC neg LORA neg MOP (OPI) neg AMP neg MET neg BAR neg BZO neg MDMA neg MTD neg OXY neg PCP neg BUP POS TCA neg FTY neg 14 Panel Urine Drug Screen Reviewed date:05/26/2025 09:13:03 AM Interpretation: Performing Lab: Notes/Report: THC neg LORA neg MOP (OPI) neg AMP neg MET neg BAR neg BZO neg MDMA neg MTD neg OXY neg PCP neg BUP POS TCA neg FTY neg 12 Panel Urine Drug Screen Reviewed date:01/27/2025 01:15:33 PM Interpretation: Performing Lab: Notes/Report: THC neg LORA neg MOP (OPI) neg AMP neg MET neg BAR neg BZO neg MDMA neg MTD neg OXY neg PCP neg BUP POS Reason For Referral Reason ANXIETY, PANIC ATTAC [place], BENZODIAZEPINE DEPENDENCE, PREFERS OUTSIDE OF [place] Diagnosis 1 Anxiety disorder, un specified (F41.9) Referral Organization [facility] Referring Provider First Name Murphy Referring Provider Last Name Dago Referring Provider Speciality Internal M edicine Referred Provider Specialty Psychiatry Referral Priority Routine Reason Start Therapy (resta rt) Diagnosis 1 Major depression (F3 2.9) Diagnosis 2 Anxiety (F41.9) Referral Organization [facility] Referring Provider First Name Kyra Referring Provider Last Name Dashawn Referring Provider Speciality Psychiatry Referred Provider Specialty [facility] General Notes Kyra Tamez 02:35:46 PM > Client was seeing Diane in the past and would like to restart with her (if able). Please refer for intake. Thanks! Referral Priority Routine Medications Medication SIG (Take, Route, Frequency, Duration) Notes Start Date End Date Status Gabapentin 400 MG 1 tablet Orally Thre e times daily; Duration: 30 days Active clonazePAM 1 MG 1 tablet Orally 3 ti mes a day; Duration: 30 days 06/23/2025 07/22/2025 Active KlonoPIN 1 MG 1 tablet Orally 3 ti mes a day; Duration: 30 days 06/23/2025 Active Sublocade 300 MG/1.5ML 1.5 mL Subcutaneo us every 28 days; Duration: 38 days 06/23/2025 Active Mirtazapine 45 MG 1 tablet at bedtime Orally Once a day; Duration: 8 days Active Mirtazapine 45 MG 1 tablet at bedtime Orally Once a day; Duration: 30 days Active Escitalopram Oxalate 20 MG TAKE 1 TABLET BY MOUTH EVERY DAY; Duration: 90 days Active buPROPion HCl ER (XL) 300 MG TAKE 1 TABLET BY MOUTH EVERY DAY AT THE MORNING FOR 30 DAYS 90 DAYS; Duration: 90 Active Buprenorphine HCl-Naloxone HCl 4-1 MG 1 film under the tongue and allow to dissolve Sublingual Once a day; Duration: 7 days As needed for opioid withdrawal 05/24/2025 Active Nicotine 21 MG/24HR 1 patch to skin Transdermal Once a day; Duration: 30 days 05/26/2025 Active Immunizations Vaccine Route Administration Date Status Comme nts FLU VAC NO PRSV 4VAL 6 mo+ IM Intramuscular 08/10/2024 Administered Vanda Faulkner 08/10/2024 04:10 PM CDT >Given LMD, tolerated well. [facility] [id number] Social History Tobacco Use: Social History Observation [...] W/U Status Risk Notes Problem Tobacco user (856090686) Nicotine dependence, unspecified, uncomplicated (F17.200) Active confirmed Problem Severe recurrent major depression without psychotic features (89839018) Major depressive disorder, recurrent severe without psychotic features (F33.2) Active confirmed Problem Anxiety disorder (056295704) Anxiety disorder, unspecified (F41.9) Active confirmed Problem Major depression (580488541) Major depression (F32.9) 03/11/20 24 Active confirmed Problem Anxiety (92920698) Anxiety (F41.9) Active confirmed Problem Thyroid nodule (912726357) Thyroid nodule (E04.1) Active confirmed Problem Obstructive sleep apnea (80929363) Obstructive sleep apnea (G47.33) 03/11/20 24 Active confirmed Problem Overweight (365836114) Over weight (E66.3) Active confirmed Problem Benzodiazepine dependence (408848451) Benzodiazepine dependence (F13.20) Active confirmed Problem Obesity (901824670) Obesity (BMI 30-39.9) (E66.9) Active confirmed Problem Body mass index 30+ - obesity (883729248) Body mass index (BMI) of 30.0-30.9 in adult (Z68.30) Active confirmed Problem Obesity (521424846) Obesity, unspecified classification, unspecified obesity type, unspecified whether serious comorbidity present (E66.9) Active confirmed Problem Steatosis of liver (729501314) Hepatic steatosis (K76.0) Active confirmed Problem Opioid use disorder (0610351904) Opioid use disorder (F11.99) 03/11/20 24 Active confirmed Problem History of cancer (224338219) History of cancer (Z85.9) 10/13/19 17 Active confirmed Vital Signs Heart Rate 106 /min 06/23/2025 Temperature 98.8 degrees Fahrenheit 06/23/2025 Respiratory Rate 16 /min 06/23/2025 Oximetry 98 % 06/23/2025 Blood pressure diastolic 88 mm Hg 06/23/2025 Height 70 in in 06/23/2025 Blood pressure systolic 142 mm Hg 06/23/2025 Weight 307.8 lbs lbs 06/23/2025 BMI 44.16 kg/m2 06/23/2025 Encounters Encounter Location Date Provider Diagnosis [address] [place] [address] 07/19/2024 Regina Bullardfimalick Opioid use disorder F11.99 ; Nicotine dependence, unspecified, uncomplicated F17.200 ; Obesity (BMI 30-39.9) E66.9 and Nutritional counseling Z71.3 [facility] [address] [address] 08/10/2024 Kyra Tamez Encounter for immunization Z23 ; Major depression F32.9 and Anxiety F41.[address] [place] [address] 08/16/2024 Murphy Loza Opioid use disorder F11.99 and Nutritional counseling Z71.[address] [place] [address] 09/13/2024 Murphy Loza Opioid use disorder F11.[address] [place] [address] 10/04/2024 Regina Szlufik Opioid use disorder F11.[address] [place] [address] 11/02/2024 Regina Szlufik Opioid use disorder F11.99 and Nutritional counseling Z71.3 [facility] [address] [place] [address] 11/09/2024 Kyra Tamez Major depression F32.9 and Anxiety F41.[address] [place] [address] 11/29/2024 Regina Plasencia Opioid use disorder F11.[address] [place] [address] 12/29/2024 Regian Szlufimalick Opioid use disorder F11.[address] [place] [address] 01/27/2025 Regina Bullardfimalick Opioid use disorder F11.99 and Over weight E66.3 [facility] [address] [place] [address] 01/27/2025 José Miguel Mckee [address] [place] [address] 02/03/2025 Murphy Loza Over weight E66.3 and Benzodiazepine dependence F13.[address] [place] [address] 02/21/2025 Kyra Tamez Major depression F32.9 ; Anxiety F41.9 and Over weight E66.[address] [address] 02/28/2025 Regina Plasencia Opioid use disorder F11.99 and Over weight E66.[address] [place] [address] 03/15/2025 Murphy Loza Benzodiazepine dependence F13.[address] [place] [address] 03/29/2025 Reigna Plasencia Over weight E66.3 and Opioid use disorder F11.[address] [place] [address] 04/12/2025 Murphy Loza Opioid use disorder F11.99 ; Hepatic steatosis K76.0 and Benzodiazepine dependence F13.20 [facility] [address] [place] [address] 04/26/2025 Linnette Stearns Opioid use disorder F11.99 and Nicotine dependence, unspecified, uncomplicated F17.[address] [place] [address] 05/26/2025 Murphy Loza Opioid use disorder F11.99 ; Anxiety disorder, unspecified F41.9 ; Benzodiazepine dependence F13.20 and Vapes nicotine containing substance Z72.[address] [place] [address] 06/02/2025 Kyra Dashawn Major depression F32.9 ; Anxiety F41.9 and Over weight E66.[address] [place] [address] 06/23/2025 Murphy Loza Opioid use disorder F11.99 ; Edema of both legs R60.0 and Benzodiazepine dependence F13.[address] [address] 10/22/2024 Kyra Taemz Major depression F32.[address] [place] [address] 12/29/2024 Regina Plasencia [address] [address] 02/08/2025 Murphy Loza Anxiety F41.9 [facility] [address] [address] 02/11/2025 Kyra Tamez Major depression F32.9 and Anxiety F41.[address] [place] [address] 02/25/2025 Murphy Loza Anxiety F41.[address] [place] [address] 03/09/2025 Murphy Loza [address] [place] [address] 03/14/2025 Murphy Loza [facility] [address] [place] [address] 03/15/2025 Murphy Loza [facility] [address] [address] 05/02/2025 Murphy Loza [address] [address] 05/10/2025 Murphy Loza Benzodiazepine dependence F13.[address] [address] 05/23/2025 Murphy Loza Benzodiazepine dependence F13.[address] [address] 05/23/2025 Murphy Loza Opioid use disorder F11.99 and Benzodiazepine dependence F13.[address] [address] 05/26/2025 Kyra Dashawn Major depression F32.[address] [address] 06/29/2025 Kyra Dashawn Major depression F32.[address] [address] 04/02/2025 Murphy Loza [address] [address] 05/23/2025 Kyra Dashawn Major depression F32.9 Assessments Encounter Date Diagnosis [...] F13.20) 05/23/2025 Major depression (ICD-10 - F32.9) 05/23/2025 Opioid use disorder (ICD-10 - F11.99) 05/26/2025 Anxiety disorder, unspecified (ICD-10 - F41.9) 05/26/2025 Opioid use disorder (ICD-10 - F11.99) 03/29/2025 Over weight (ICD-10 - E66.3) 03/29/2025 Opioid use disorder (ICD-10 - F11.99) 02/21/2025 Major depression (ICD-10 - F32.9) 02/25/2025 Anxiety (ICD-10 - F41.9) 02/28/2025 Over weight (ICD-10 - E66.3) 02/28/2025 Opioid use disorder (ICD-10 - F11.99) 05/26/2025 Major depression (ICD-10 - F32.9) 06/02/2025 Major depression (ICD-10 - F32.9) 04/12/2025 Hepatic steatosis (ICD-10 - K76.0) CONTINUE TO WORK ON DIET, WEIGHT 06/23/2025 Edema of both legs (ICD-10 - R60.0) DISCUSSED LEG ELEVATION, LOW SALT DIET, SUPPORT STOCKINGS 06/23/2025 Opioid use disorder (ICD-10 - F11.99) 06/29/2025 Major depression (ICD-10 - F32.9) 07/19/2024 Nicotine dependence, unspecified, uncomplicated (ICD-10 - [...] 07/19/2024 Obesity (BMI 30-39.9) (ICD-10 - E66.9) 06/23/2025 Benzodiazepine dependence (ICD-10 - F13.20) DUPLICATE RX DUE TO PHARMACY CHANGE 06/02/2025 Anxiety (ICD-10 - F41.9) 02/21/2025 Anxiety (ICD-10 - F41.9) 04/12/2025 Benzodiazepine dependence (ICD-10 - F13.20) CONTINUE WEAN 05/26/2025 Benzodiazepine dependence (ICD-10 - F13.20) DISCUSSED RISK OF RESPIRATORY DEPRESSION AND PREMATURE WITH CHRONIC BENZO USE, PEYMAN. WITH USE OF OPOIDS. HE UNDERSTANDS BUT FEELS HE IS UNABLE TO TOLERATE TAPER. 05/23/2025 Benzodiazepine dependence (ICD-10 - F13.20) 05/26/2025 Vapes nicotine containing substance (ICD-10 - Z72.0) 02/21/2025 Over weight (ICD-10 - E66.3) 06/02/2025 Over weight (ICD-10 - E66.3) 07/19/2024 Nutritional counseling (ICD-10 - Z71.3) 08/10/2024 Anxiety (ICD-10 - F41.9) 07/19/2024 Other Client agrees to take medication [...] may self-administer their own oral medications per [place] Protocol. 12/29/2024 Other Provided list of shelters. Message sent to [facility] for additional housing resources. Patient agrees to [...] may self-administer their own oral medications per [place] Protocol. May not self-administer Sublocade. 01/27/2025 Other Met with health navigator [facility] for community resources Patient agrees to take medication as [...] may self-administer their own oral medications per [place] Protocol. 02/21/2025 Other Provider talked with SHOBHA [...] May also contact the 24-hour crisis hotline ([facility]), refer to the closest emergency room or [...] may self-administer their own oral medications per [place] Protocol. May not self-administer Sublocade. 04/12/2025 Other DOING WELL NOW. CONTINUE SUBLOCADE [place] ISSUES 04/26/2025 Other Patient agrees to take medication as prescribed. Discussed medication side effects, adverse effects, risks, benefits, as well as interactions. Encouraged non-use of opioids. Encouraged participation in recovery groups. Patient may contact office with questions or concerns. 06/02/2025 Other Reports wanting to try weaning down medications. With being on gabapentin along with klonopin, decrease gabapentin as has less efficacy per client, can revisit if needed. Reasons, potential benefits, potential risks, interactions and [...] May also contact the 24-hour crisis hotline ([facility]), refer to the closest emergency room or [...] assess appearance, affect, AIMS, or vital signs. Plan Of Treatment Future Test Test Name Order Date Chest X-ray PA and lateral 05/24/2024 Next Appt Details Provider Name:Kyra byrd, 07/06/2025 02:20:00 PM, [address], [place], [address], Insurance Providers Payer Name Payer Address Payer Phone Subscriber Number Group Number Insured Name Patient Relationship to Insured Coverage Start Date Coverage End Date [facility] Attn Claims Department [address] [place] [address] [id number] Ramirez Trevizo Self - patient is the insured [facility] Attn Claims Department [address] [place] [address] [id number] Ramirez Trevizo Self - patient is the insured Medications Administered Medication Instructions Date of Administration Dosage Notes Sublocade 10/04/2024 300 mg SukhdeepChelsey aragon RN 10/04/2024 02:49:36 PM BLOWING ENGINEER >pt tolerated well. minimal discomfort observed or reported. Sublocade 11/02/2024 300 mg SukhdeepChelsey aragon RN 11/02/2024 09:53:51 AM BLOWING ENGINEER >administered to the right lower quadrant of the abdomen. Pt tolerated well with minimal discomfort observed or reported. Sublocade 11/29/2024 300 mg Wilbert, Natalie L 11/29/2024 02:39:08 PM BLOWING ENGINEER >Pt tolerated well. No s&s of adverse reaction. Sublocade 12/29/2024 300 mg Wilbert, Natalie L 12/29/2024 02:52:57 PM CDT > PT tolerated well. No s&s of adverse reaction. Sublocade 01/27/2025 300 mg Sublocade 02/28/2025 300 mg Sublocade 03/29/2025 300 mg Wilbert, Natalie L 03/29/2025 09:01:19 AM CDT > Pt tolerated well. No s&s adverse reaction. Sublocade 04/26/2025 300 mg Delaney Pina RN 04/26/2025 01:54:30 PM CDT >manufact Indivior, patient tolerated well. 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
--- OUTSIDE RECORDS SUMMARY | 2025-07-06 12:40 | XMS_ITS | Clinical Summary ---
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
[2025-07-06 12:43] LABS: Add Urine Microscopic? NO; Appearance Urine Clear (Clear); Glucose Urine UA Negative (Negative); Leukocyte Esterase Ur Negative LEU/UL (Negative); Nitrate Urine Negative (Negative); Specific Grav Ur <= 1.005 (1.010-1.020)
[2025-07-06 12:45] LABS: Hematocrit 35.2 % (40.0-54.0); Hemoglobin 9.7 g/dL (14.0-18.0); Immature Granulocyte Percent A 0.2 % (0.0-0.0); Immature Platelet Fraction Pct 3.3 % (1.0-7.0); Lymphocytes Absolute Auto 1.45 K/mm3 (1.10-4.50); Mean Corpuscular HGB Conc 27.6 g/dL (32-36); Mean Corpuscular Hemoglobin 20.3 pg (27.0-31.0); Mean Corpuscular Volume 73.5 fL (78.0-102.0); Nucleated Red Blood Cells Absolute Auto 0.00 K/mm3 (0.00-0.00); Nucleated Red Blood Cells Perc 0.0 % (0-0.0); Platelet Count Result 204 K/mm3 (150-420); Red Blood Count 4.79 M/mm3 (4.70-6.10); White Blood Count 5.8 K/mm3 (4.8-10.8)
[2025-07-06 13:10] LABS: Iron 24 ug/dL (49-181)
[2025-07-06 13:11] LABS: Alanine Aminotransferase 30 U/L (6-50); Albumin Level 4.3 g/dL (3.5-5.1); Alkaline Phosphatase 75 U/L (38-126); Anion Gap 11 mmol/L (4-12); Aspartate Amino Transferase 38 U/L (17-59); Bilirubin,Total 0.4 mg/dL (0.2-1.3); Blood Urea Nitrogen 7 mg/dL (9-20); Calcium 9.3 mg/dL (8.4-10.2); Carbon Dioxide 28 mmol/L (22-30); Chloride 104 mmol/L (98-107); Estimated Glomerular Filt Rate 60; Glucose 94 mg/dL (65-110); Osmolality Calculated 294 mOsm/kg (285-295); Potassium 4.5 mmol/L (3.4-5.0); Sodium 143 mmol/L (137-145); Total Protein 7.1 g/dL (6.3-8.2)
[2025-07-06 13:22] LABS: NT Pro B Type Natriuretic Pept < 20 pg/mL (19.9-100)
[2025-07-06 13:45] LABS: Thyroid Stimulating Hormone Reflex 3.670 uIU/mL (0.465-4.68)
[2025-07-06 13:48] LABS: Ferritin 9.10 ng/mL (17.9-464)
[2025-07-06 14:40] LABS: Percent Iron Saturation 6 % (20-50)
== END 2025-07-06 12:29 | disposition home or self-care (01) ==
PROVIDERS: PCP Nurse Practitioner Family; Visit Provider Nurse Practitioner Family
DX: Z00.00 Encounter for general adult medical examination without abnormal findings (principal); I35.0 Nonrheumatic aortic (valve) stenosis; R01.1 Cardiac murmur, unspecified; M79.89 Other specified soft tissue disorders; R23.1 Pallor; R39.198 Other difficulties with micturition
CPT/HCPCS: 36415; 80053; 81003; 82728; 83540; 83550; 83880; 84443; 85025; 85055

== ENCOUNTER 2025-07-11 14:36 | Outpatient (CLI) | payer OTHER, SELFPAY ==
--- NOTE | 2025-07-11 | CONSULT_PTH ---
PATIENT: Ramirez Trevizo LOC: [facility]#:[id number] AGE/SX: 44/M ROOM: RE07/11/[address]: Nolvia Babcock APRN : 1980 BED: DIS: 07/11/2025 SPEC #: [id number] RECD: 07/12/25 08:23 STATUS: JAZZ REUzma #: [id number] MONICA: 07/11/25 00:[address]: Nolvia Babcock DEPT: [facility] Consult RECD BY: Asia Pizarro MLT, ([facility]) Tissues: A - Peripheral Smear Procedures: Hematology Consult
--- OUTSIDE RECORDS SUMMARY | 2025-07-11 15:23 | XMS_ITS | Clinical Summary ---
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
--- OUTSIDE RECORDS SUMMARY | 2025-07-11 15:23 | XMS_ITS | Clinical Summary ---
Author Organization [facility] Address [address], [address] [address] Phone Care Team Providers Care Director Of Assessing Name Role Phone Jose Hurtado MD Primary [...] Comments Blood Pressure 110/80 11/13/2018 9:35 AM SEED CORN MANAGER PRODUCTION Pulse 90 11/13/2018 9:35 AM SEED CORN MANAGER PRODUCTION Temperature - - Respiratory Rate - - Oxygen Saturation 98% 11/13/2018 9:35 AM SEED CORN MANAGER PRODUCTION Inhaled Oxygen Concentration - - Weight 125.2 kg (276 lb) 11/13/2018 9:35 AM SEED CORN MANAGER PRODUCTION Height 177.8 cm (5' 10) 11/13/2018 9:35 AM SEED CORN MANAGER PRODUCTION Body Mass Index 39.6 11/13/2018 9:35 AM SEED CORN MANAGER PRODUCTION Plan of Treatment Health Maintenance Due Date [...] Insurance MEDICAID [employer] Care Teams Director Of Assessing Relationship Specialty Start Date End Date Jose Hurtado MD [address] [place] [address] PCP - General Family Medicine 02/24/18
--- OUTSIDE RECORDS SUMMARY | 2025-07-11 15:23 | XMS_ITS | Clinical Summary ---
Author Organization [facility] Address [facility] [place] [address] Care Team Providers Care Otolaryngology Rep Name Role Phone Jose Hurtado MD Primary Care Provider [phone] Allergies No known active allergies Medications buprenorphine-na [...] to complete this topic Insurance Care Teams Otolaryngology Rep Relationship Specialty Start Date End Date Jose Hurtado MD [address] [place] [address] PCP - General 09/18/15
--- OUTSIDE RECORDS SUMMARY | 2025-07-11 15:23 | XMS_ITS | Clinical Summary ---
Author Organization [facility] Address [address] [place] [address] Care Team Providers Care Edge Banding Off Bearer Name Role Phone Jose Hurtado MD Primary Care Provider [phone] Source Comments [facility],non-[facility] Affiliates and Associated Physician Practices is amultiple site organization consisting of ambulatory clinics and hospital sitesin [place], [place], [place] and [place]. This disclosure is being madepursuant to the Care Everywhere program and may not contain all information available regarding this patient. 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 Gender Identity Not on file Sexual Orientation Not on file Last Filed Vital Signs Vital Sign Reading Time Taken Comments Blood Pressure 132/93 08/25/2015 1:50 AM ENGINEER SPECIALIST Pulse 65 08/25/2015 1:51 AM ENGINEER SPECIALIST Temperature 37.1 C (98.7 F) 08/25/2015 1:31 AM ENGINEER SPECIALIST Respiratory Rate 16 08/25/2015 1:31 AM ENGINEER SPECIALIST Oxygen Saturation 100% 08/25/2015 1:51 AM ENGINEER SPECIALIST Inhaled Oxygen Concentration - - Weight 111.1 kg (245 lb) 08/25/2015 1:31 AM ENGINEER SPECIALIST Height 177.8 cm (5' 10) 08/25/2015 1:31 AM ENGINEER SPECIALIST Body Mass Index 35.15 08/25/2015 1:31 AM ENGINEER SPECIALIST Plan of Treatment Health Maintenance Due Date [...] patient's age to complete this topic Insurance [facility] Care Teams Edge Banding Off Bearer Relationship Specialty Start Date End Date Jose Hurtado MD PCP - General 08/25/15
[2025-07-11 16:20] LABS: Vitamin B12 750.0 pg/mL (239-931)
[2025-07-12 08:05] LABS: Hematocrit 36.3 % (40.0-54.0); Hemoglobin 9.7 g/dL (14.0-18.0); Immature Granulocyte Percent A 0.2 % (0.0-0.0); Immature Platelet Fraction Pct 5.2 % (1.0-7.0); Lymphocytes Absolute Auto 1.25 K/mm3 (1.10-4.50); Mean Corpuscular HGB Conc 26.7 g/dL (32-36); Mean Corpuscular Hemoglobin 19.9 pg (27.0-31.0); Mean Corpuscular Volume 74.5 fL (78.0-102.0); Nucleated Red Blood Cells Absolute Auto 0.00 K/mm3 (0.00-0.00); Nucleated Red Blood Cells Perc 0.0 % (0-0.0); Platelet Count Result 172 K/mm3 (150-420); Red Blood Count 4.87 M/mm3 (4.70-6.10); White Blood Count 4.8 K/mm3 (4.8-10.8)
== END 2025-07-11 14:37 | disposition home or self-care (01) ==
LOC: CHSLAB 14:37
PROVIDERS: PCP Nurse Practitioner Family; Visit Provider Nurse Practitioner Family
DX: R79.89 Other specified abnormal findings of blood chemistry (principal)
CPT/HCPCS: 36415; 82607; 82746; 85025; 85055

== ENCOUNTER 2025-08-05 09:51 | Outpatient (CLI) | payer OTHER, SELFPAY ==
--- OUTSIDE RECORDS SUMMARY | 2025-05-10 08:00 | XMS_ITS ---
Author Organization [facility] Address [address] [place] [address] Care Team Providers Care Outside Plant Field Engineer Name Role Phone Murphy Loza Primary Care Provider Kyra Tamez Unavailable [phone] Layla Curry Unavailable [phone] REASON FOR VISIT 2 Week F/U Social History Sex Assigned At : Social History Observation Description Sex Assigned At Male Encounters Encounter Location Date Provider Diagnosis [address] [address] 05/10/2025 Murphy Loza Plan Of Treatment Next Appt Details Provider Name:José Miguel ortiz, 08/09/2025 11:00:00 AM, [address] [place], [address], Progress Notes * Ramirez HOLLIDAY RDOB:1980 (44 yo M)Acc No.[id number]:05/10/2025 UNLOCKED PROGRESS NOTE Progress Notes Patient: Sun BISHOP Ramirez Denice Provider: Yazan Loza :1980 A ge:44 Y S ex:Male Date:05/10/2025 Address:[address] [facility] Subjective: * Chief Complaints: * 1 . 2 Week F/U. * Medical History: Objective: * Vitals: Assessment: Plan: * Treatment: * * Electronic signature of Yue Loza , [id number] on 08/05/2025 at 10:11 AM CDT Sign off status: Pending * Provider: Yazan Loza Date: 0 05/10/2025 Generated for Rudolph archuleta/Jasmyne/Rik on: 1 10:11 AM CDT
[2025-08-05 10:05] VITALS: BP 134/76; PULSE 88; RESP 16; TEMP 36.6; O2SAT 98; BMI 45.1
--- OUTSIDE RECORDS SUMMARY | 2025-08-05 10:11 | XMS_ITS | Clinical Summary ---
Author Organization [facility] Address [address] [place] [address] Care Team Providers Care Sales Commissions Analyst Name Role Phone Jose Hurtado MD Primary Care Provider [phone] Source Comments [facility] Affiliates and Associated Physician Practices is amultiple site organization consisting of ambulatory clinics and hospital sitesin [place], [place], [place] and [place]. This disclosure is being madepursuant to the Care Everywhere program and may not contain all information available regarding this patient. Last updated 18.[facility] Social History Tobacco Use Types Packs/Day Years Used Date Smoking Tobacco: Never Alcohol Use Standard Drinks/Week Comments No 0 (1 standard drink = 0.6 oz pur e alcohol) Sex and Gender Information Value Date Recorded Sex Assigned at Not on file Legal Sex Male 6:08 PM MEDICATION TECH Gender Identity Not on file Sexual Orientation Not on file Last Filed Vital Signs Vital Sign Reading Time Taken Comments Blood Pressure 132/93 08/25/2015 1:50 AM MEDICATION TECH Pulse 65 08/25/2015 1:51 AM MEDICATION TECH Temperature 37.1 C (98.7 F) 08/25/2015 1:31 AM MEDICATION TECH Respiratory Rate 16 08/25/2015 1:31 AM MEDICATION TECH Oxygen Saturation 100% 08/25/2015 1:51 AM MEDICATION TECH Inhaled Oxygen Concentration - - Weight 111.1 kg (245 lb) 08/25/2015 1:31 AM MEDICATION TECH Height 177.8 cm (5' 10) 08/25/2015 1:31 AM MEDICATION TECH Body Mass Index 35.15 08/25/2015 1:31 AM MEDICATION TECH Plan of Treatment Health Maintenance Due Date [...] patient's age to complete this topic Insurance [facility] Care Teams Sales Commissions Analyst Relationship Specialty Start Date End Date Jose Hurtado MD PCP - General 08/25/15
--- OUTSIDE RECORDS SUMMARY | 2025-08-05 10:11 | XMS_ITS | Clinical Summary ---
Author Organization [facility] Address Formerly [facility], [id number] [place] [address] Care Team Providers Care Hide Worker Name Role Phone Jose Hurtado MD Primary Care Provider [phone] Allergies No known active allergies Medications buprenorphine-na [...] 3-dose SCD M series) 2009 COVID-19 Vaccine (2024-2 6 season) 2025 Influenza Adult (#1) 2025 Hepatitis A Vaccines Aged Out No long er eligible based [...] patient's age to complete this topic Insurance [facility] Care Teams Hide Worker Relationship Specialty Start Date End Date Jose Hurtado MD [address] [place] [address] [facility] - General 09/18/15
--- OUTSIDE RECORDS SUMMARY | 2025-08-05 10:11 | XMS_ITS | Clinical Summary ---
Author Organization [facility] Address [address], [address] [address] Phone Care Team Providers Care Corrugated Box Machine Operator Name Role Phone Jose Hurtado MD Primary Care Provider [phone] Allergies No known active allergies Medications citalopram [...] Comments Blood Pressure 110/80 11/13/2018 9:35 AM FOOD WRITER Pulse 90 11/13/2018 9:35 AM FOOD WRITER Temperature - - Respiratory Rate - - Oxygen Saturation 98% 11/13/2018 9:35 AM FOOD WRITER Inhaled Oxygen Concentration - - Weight 125.2 kg (276 lb) 11/13/2018 9:35 AM FOOD WRITER Height 177.8 cm (5' 10) 11/13/2018 9:35 AM FOOD WRITER Body Mass Index 39.6 11/13/2018 9:35 AM FOOD WRITER Plan of Treatment Health Maintenance Due Date [...] Insurance MEDICAID [employer] Care Teams Corrugated Box Machine Operator Relationship Specialty Start Date End Date Jose Hurtado MD [address] [place] [address] PCP - General Family Medicine 02/24/18
--- OUTSIDE RECORDS SUMMARY | 2025-08-05 10:12 | XMS_ITS | Clinical Summary ---
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
--- OUTSIDE RECORDS SUMMARY | 2025-08-05 10:12 | XMS_ITS | Patient Health Record ---
Author Organization [facility] Address [address] [place] [address] Care Team Providers Care Lasting Room Supervisor Name Role Phone Murphy Loza Primary Care Provider Kyra Tamez Unavailable [phone] Layla Curry Unavailable [phone] Linnette Stearns Unavailable [phone] Regina Plasencia Unavailable [phone] José Miguel Mckee Unavailable [phone] Asia Franz Unavailable [phone] Allergies No Known Allergies Results Component Value Reference Range Notes 12 Panel Urine Drug Screen Reviewed date:01/27/2025 [...] POS 14 Panel Urine Drug Screen Reviewed date:06/23/2025 [...] neg 12 Panel Urine Drug Screen Reviewed date:02/28/2025 [...] neg 12 Panel Urine Drug Screen Reviewed date:08/16/2024 [...] POS 14 Panel Urine Drug Screen Reviewed date:07/27/2025 10:44:09 AM Interpretation: Performing Lab: Notes/Report: THC neg LORA neg MOP (OPI) neg AMP neg MET neg BAR neg BZO neg MDMA neg MTD neg OXY neg PCP neg BUP POS TCA neg FTY neg Reason For Referral Reason ANXIETY, PANIC ATTAC [place], BENZODIAZEPINE DEPENDENCE, PREFERS OUTSIDE OF MILO Diagnosis 1 Anxiety disorder, un specified (F41.9) Referral Organization [facility] Referring Provider First Name Murphy Referring Provider Last Name Loza Referring Provider Speciality Internal M edicine Referred Provider Specialty Psychiatry Referral Priority Routine Reason Start Therapy (resta rt) Diagnosis 1 Major depression (F3 2.9) Diagnosis 2 Anxiety (F41.9) Referral Organization [facility] Referring Provider First Name Kyra Referring Provider Last Name Dashawn Referring Provider Speciality Psychiatry Referred Provider Specialty Behavioral [facility] General Notes Kyra Tamez 02:35:46 PM > Client was seeing Diane in the past and would like to restart with her (if able). Please refer for intake. Thanks! Clinical Notes Darlene Mckee 08/03/2025 10:18:10 AM > sinter press operator spoke with client who was agreeable to meeting with writer producer for short term therapy services. Client is scheduled to speak with client 08/09 via phone appointment at 11am. Referral Priority Routine Medications Medication SIG (Take, Route, Frequency, Duration) Notes Start Date End Date Status Nicotine 21 MG/24HR 1 patch to skin Transdermal Once a day; Duration: 30 days 05/26/2025 Not-Taking clonazePAM 1 MG 1 tablet Orally 3 ti mes a day; Duration: 30 days 07/21/2025 Active Buprenorphine HCl-Naloxone HCl 4-1 MG 1 film under the tongue and allow to dissolve Sublingual Once a day; Duration: 7 days As needed for opioid withdrawal 07/21/2025 Not-Taking Escitalopram Oxalate 20 MG TAKE 1 TABLET BY MOUTH EVERY DAY; Duration: 90 days Active Gabapentin 300 MG 1 tablet Orally Thre e times daily; Duration: 30 days Active Mirtazapine 45 MG 1 tablet at bedtime Orally Once a day; Duration: 90 days Active buPROPion HCl ER (XL) 300 MG TAKE 1 TABLET BY MOUTH EVERY DAY AT THE MORNING FOR 30 DAYS 90 DAYS; Duration: 90 Active Finasteride 5 MG 1 tablet Orally Once a day Active Farxiga 10 MG 1 tablet Orally Once a day Active Sublocade 300 MG/1.5ML 1.5 mL Subcutaneo us every 28 days 06/23/2025 Active Nicorette 4 MG 1 piece chew for 30 minutes as needed Mouth/Throat ,Every 1-2 hours, up to 16 a day 07/27/2025 Active Immunizations Vaccine Route Administration Date Status Comme nts FLU VAC NO PRSV 4VAL 6 mo+ IM Intramuscular 08/10/2024 Administered Vanda Faulkner 08/10/2024 04:10 PM CDT >Given LMD, tolerated well. [facility] [id number] Social History Tobacco Use: Social History Observation Description Date Details (start date - stop date) Unknown Sex Assigned At : Social History Observation Description Sex Assigned At Male Tobacco Control (Standard) Question Answer Notes Tobacco use: Uses tobacco in other forms Additional Findings: Tobacco user e-cigarette AUDIT-C (Standard) Question Answer Notes Did you have a drink containing alcohol in the p ast year? No Points 0 Interpretation Negative Problems Problem Type SNOMED Code ICD Code Onset Dates Problem Status W/U Status Risk Notes Problem Information temporarily unavailable Nicotine dependence, unspecified, uncomplicated (F17.200) Active confirmed Problem Information temporarily unavailable Major depressive disorder, recurrent severe without psychotic features (F33.2) Active confirmed Problem Information temporarily unavailable Anxiety disorder, unspecified (F41.9) Active confirmed Problem Information temporarily unavailable Major depression (F32.9) 4 Active confirmed Problem Information temporarily unavailable Anxiety (F41.9) Active confirmed Problem Information temporarily unavailable Thyroid nodule (E04.1) Active confirmed Problem Information temporarily unavailable Obstructive sleep apnea (G47.33) 4 Active confirmed Problem Information temporarily unavailable Over weight (E66.3) Active confirmed Problem Information temporarily unavailable Benzodiazepine dependence (F13.20) Active confirmed Problem Information temporarily unavailable Obesity (BMI 30-39.9) (E66.9) Active confirmed Problem Information temporarily unavailable Body mass index (BMI) of 30.0-30.9 in adult (Z68.30) Active confirmed Problem Information temporarily unavailable Obesity, unspecified classification, unspecified obesity type, unspecified whether serious comorbidity present (E66.9) Active confirmed Problem Information temporarily unavailable Hepatic steatosis (K76.0) Active confirmed Problem Information temporarily unavailable Opioid use disorder (F11.99) 4 Active confirmed Problem Information temporarily unavailable History of cancer (Z85.9) 7 Active confirmed Vital Signs Heart Rate 85 /min 07/27/2025 Temperature 98.7 degrees Fahrenheit 07/27/2025 Respiratory Rate 16 /min 07/27/2025 Oximetry 98 % 07/27/2025 Blood pressure diastolic 88 mm Hg 07/27/2025 Height 70in in 07/27/2025 Blood pressure systolic 124 mm Hg 07/27/2025 Weight 306.6lbs lbs 07/27/2025 BMI 43.99 kg/m2 07/27/2025 Encounters Encounter Location Date Provider Diagnosis Formerly [facility] [address] [place] [address] 08/10/2024 Kyra Tamez Encounter for immunization Z23 ; Major depression F32.9 and Anxiety F41.[address] [place] [address] 08/16/2024 Murphy Loza Opioid use disorder F11.99 and Nutritional counseling Z71.[address] [place] [address] 09/13/2024 Murphy Loza Opioid use disorder F11.[address] [place] [address] 10/04/2024 Regina Paulsonlufik Opioid use disorder F11.[address] [place] [address] 11/02/2024 Regina Paulsonlufik Opioid use disorder F11.99 and Nutritional counseling Z71.3 Formerly [facility] [address] [place] [address] 11/09/2024 Kyra Tamez Major depression F32.9 and Anxiety F41.[address] [place] [address] 11/29/2024 Regina Szlufik Opioid use disorder F11.[address] [place] [address] 12/29/2024 Regina Szlufik Opioid use disorder F11.99 [place] [address] [address] 01/27/2025 Regina Plasencia Opioid use disorder F11.99 and Over weight E66.3 [facility] [address] [place] [address] 01/27/2025 José Miguel Mckee [address] [address] 02/03/2025 Murphy Loza Over weight E66.3 and Benzodiazepine dependence F13.[address] [address] 02/21/2025 Kyra Tamez Major depression F32.9 ; Anxiety F41.9 and Over weight E66.[address] [address] 02/28/2025 Regina Plasencia Opioid use disorder F11.99 and Over weight E66.[address] [address] 03/15/2025 Murphy Loza Benzodiazepine dependence F13.[address] [address] 03/29/2025 Regina Plasencia Over weight E66.3 and Opioid use disorder F11.[address] [address] 04/12/2025 Murphy Loza Opioid use disorder F11.99 ; Hepatic steatosis K76.0 and Benzodiazepine dependence F13.20 [facility] [address] [place] [address] 04/26/2025 Linnettejames Stearns Opioid use disorder F11.99 and Nicotine dependence, unspecified, uncomplicated F17.[address] [address] 05/26/2025 Murphy Loza Opioid use disorder F11.99 ; Anxiety disorder, unspecified F41.9 ; Benzodiazepine dependence F13.20 and Vapes nicotine containing substance Z72.[address] [address] 06/02/2025 Kyra Tamez Major depression F32.9 ; Anxiety F41.9 and Over weight E66.[address] [address] 06/23/2025 Murphy Loza Opioid use disorder F11.99 ; Edema of both legs R60.0 and Benzodiazepine dependence F13.[address] [address] 07/06/2025 Kyrageoff Tamez Major depression F32.9 ; Anxiety F41.9 and Over weight E66.[address] [address] 07/21/2025 Murphy Loza Opioid use disorder F11.99 and Benzodiazepine dependence F13.[address] [address] 07/27/2025 Asia Franz Opioid use disorder F11.99 ; Nicotine dependence, unspecified, uncomplicated F17.200 and Over weight E66.3 [facility] [address] [place] [address] 10/22/2024 Kyra Tamez Major depression F32.[address] [address] 12/29/2024 Regina Plasencia [address] [address] 02/08/2025 Murphy Loza Anxiety F41.9 [facility] [address] [address] 02/11/2025 Kyra Tamez Major depression F32.9 and Anxiety F41.[address] [address] 02/25/2025 Murphy Loza Anxiety F41.[address] [address] 03/09/2025 Murphy Loza [address] [address] 03/14/2025 Murphy Loza [facility] [address] [place] [address] 03/15/2025 Murphy Loza [facility] [address] [place] [address] 05/02/2025 Murphy Loza [address] [address] 05/10/2025 Murphy Loza Benzodiazepine dependence F13.[address] [address] 05/23/2025 Murphy Loza Benzodiazepine dependence F13.[address] [address] 05/23/2025 Murphy Loza Opioid use disorder F11.99 and Benzodiazepine dependence F13.20 [facility] [address] [place] [address] 05/26/2025 Kyra Tamez Major depression F32.[address] [address] 06/29/2025 Kyra Tamez Major depression F32.[address] [address] 07/15/2025 Murphy Loza [address] [address] 07/27/2025 Asia Franz Nicotine dependence, unspecified, uncomplicated F17.[address] [address] 04/02/2025 Murphy Loza [address] [address] 05/23/2025 Kyra Tamez Major depression F32.9 Assessments Encounter Date Diagnosis (ICD Code) Assessment Notes Treatment Notes Treatment Clinical Notes Section Notes 03/15/2025 Benzodiazepine dependence (ICD-10 - F13.20) 04/12/2025 Opioid use disorder (ICD-10 - F11.99) 07/21/2025 Opioid use disorder (ICD-10 - F11.99) 02/08/2025 Anxiety (ICD-10 - F41.9) 09/13/2024 Opioid use disorder (ICD-10 - F11.99) 05/23/2025 Major depression (ICD-10 - F32.9) 07/27/2025 Nicotine dependence, unspecified, uncomplicated (ICD-10 - F17.200) 07/06/2025 Major depression (ICD-10 - F32.9) 06/29/2025 Major depression (ICD-10 - F32.9) 02/28/2025 Over weight (ICD-10 - E66.3) 02/28/2025 Opioid use disorder (ICD-10 - F11.99) 02/21/2025 Major depression (ICD-10 - F32.9) 02/11/2025 Major depression (ICD-10 - F32.9) 12/29/2024 Opioid use disorder (ICD-10 - F11.99) 05/26/2025 Anxiety disorder, unspecified (ICD-10 - F41.9) 05/26/2025 Opioid use disorder (ICD-10 - F11.99) 07/27/2025 Nicotine dependence, unspecified, uncomplicated (ICD-10 - F17.200) 06/23/2025 Edema of both legs (ICD-10 - R60.0) DISCUSSED LEG ELEVATION, LOW SALT DIET, SUPPORT STOCKINGS 06/23/2025 Opioid use disorder (ICD-10 - F11.99) 07/21/2025 Benzodiazepine dependence (ICD-10 - F13.20) 05/23/2025 Opioid use disorder (ICD-10 - F11.99) 05/26/2025 Major depression (ICD-10 - F32.9) 06/02/2025 Major depression (ICD-10 - F32.9) 04/26/2025 Nicotine dependence, unspecified, uncomplicated (ICD-10 - F17.200) 04/26/2025 Opioid use disorder (ICD-10 - F11.99) 05/10/2025 Benzodiazepine dependence (ICD-10 - F13.20) 05/23/2025 Benzodiazepine dependence (ICD-10 - F13.20) 04/12/2025 Hepatic steatosis (ICD-10 - K76.0) CONTINUE TO WORK ON DIET, WEIGHT 03/29/2025 Over weight (ICD-10 - E66.3) 03/29/2025 Opioid use disorder (ICD-10 - F11.99) 01/27/2025 Opioid use disorder (ICD-10 - F11.99) 02/03/2025 Over weight (ICD-10 - E66.3) 02/03/2025 Benzodiazepine dependence (ICD-10 - F13.20) HE WILL CALL FOR REFILL ON 02/10 WHEN IT IS DUE. HE AGREES TO TAPER KLONOPIN BY 0.25 MG PER MONTH FOR NOW. REFILL WILL BE FOR 1 MG BID AND 0.75 MG IN THE AFTERNOON. 02/25/2025 Anxiety (ICD-10 - F41.9) 10/04/2024 Opioid use disorder (ICD-10 - F11.99) 10/22/2024 Major depression (ICD-10 - F32.9) 11/29/2024 Opioid use disorder (ICD-10 - F11.99) 07/27/2025 Opioid use disorder (ICD-10 - F11.99) 11/09/2024 Major depression (ICD-10 - F32.9) 11/02/2024 Nutritional counseling (ICD-10 - Z71.3) 11/02/2024 Opioid use disorder (ICD-10 - F11.99) 08/16/2024 Opioid use disorder (ICD-10 - F11.99) 08/10/2024 Encounter for immunization (ICD-10 - Z23) pt tolerated well. Ordered per standing orders for administering influenza vaccine to adults Ordered per standing orders for administering influenza vaccine to adults. Ordered per standing orders for administering influenza vaccine to adults. Ordered per standing orders for administering influenza vaccine to adults. 06/23/2025 Benzodiazepine dependence (ICD-10 - F13.20) DUPLICATE RX DUE TO PHARMACY CHANGE 08/10/2024 Major depression (ICD-10 - F32.9) 08/16/2024 Nutritional counseling (ICD-10 - Z71.3) 11/09/2024 Anxiety (ICD-10 - F41.9) 01/27/2025 Over weight (ICD-10 - E66.3) 04/12/2025 Benzodiazepine dependence (ICD-10 - F13.20) CONTINUE WEAN 05/23/2025 Benzodiazepine dependence (ICD-10 - F13.20) 06/02/2025 Anxiety (ICD-10 - F41.9) 07/27/2025 Over weight (ICD-10 - E66.3) 05/26/2025 Benzodiazepine dependence (ICD-10 - F13.20) DISCUSSED RISK OF RESPIRATORY DEPRESSION AND PREMATURE WITH CHRONIC BENZO USE, PEYMAN. WITH USE OF OPOIDS. HE UNDERSTANDS BUT FEELS HE IS UNABLE TO TOLERATE TAPER. 02/11/2025 Anxiety (ICD-10 - F41.9) 02/21/2025 Anxiety (ICD-10 - F41.9) 07/06/2025 Anxiety (ICD-10 - F41.9) 07/06/2025 Over weight (ICD-10 - E66.3) 02/21/2025 Over weight (ICD-10 - E66.3) 05/26/2025 Vapes nicotine containing substance (ICD-10 - Z72.0) 06/02/2025 Over weight (ICD-10 - E66.3) 08/10/2024 Anxiety (ICD-10 - F41.9) 10/04/2024 Other Patient agrees to take medication [...] may self-administer their own oral medications per [place] Protocol. 12/29/2024 Other Provided list of shelters. Message sent to [facility] for additional housing resources. Patient agrees to [...] may self-administer their own oral medications per [place] Protocol. May not self-administer Sublocade. 01/27/2025 Other Met with health navigator [facility] for [facility] Patient agrees to take medication as prescribed. [...] may self-administer their own oral medications per [place] Protocol. 02/21/2025 Other Provider talked with SHOBHA [...] May also contact the 24-hour crisis hotline ([facility]), refer to the closest emergency [...] may self-administer their own oral medications per [place] Protocol. May not self-administer Sublocade. 04/12/2025 Other [...] May also contact the 24-hour crisis hotline ([facility]), refer to the closest emergency [...] assess appearance, affect, AIMS, or vital signs. 07/06/2025 Other Reasons, potential benefits, potential risks, interactions [...] May also contact the 24-hour crisis hotline ([facility]), refer to the closest emergency [...] assess appearance, affect, AIMS, or vital signs. 07/27/2025 Other Patient agrees to take medication as [...] may self-administer their own oral medications per [place] Protocol. Agrees to return to office in 28 days for next injection Plan Of Treatment Future Test Test Name Order Date Chest X-ray PA and lateral 05/24/2024 Next Appt Details Provider Name:José Miguel ortiz, 08/09/2025 11:00:00 AM, [address] [place], [address], Insurance Providers Payer Name Payer Address Payer Phone Subscriber Number Group Number Insured Name Patient Relationship to Insured Coverage Start Date Coverage End Date [facility] Attn Claims Department [address] [place] [address] [phone] [id number] Ramirez Trevizo Self - patient is the insured 4 [facility] Attn Claims Department [address] [place] [address] [phone] [id number] Ramirez Trevizo Self - patient is the insured 4 Medications Administered Medication Instructions Date of Administration Dosage Notes Sublocade 10/04/2024 300 mg Chelsey Tarango RN 10/04/2024 02:49:36 PM SILVER MINER >pt tolerated well. minimal discomfort observed or reported. Sublocade 11/02/2024 300 mg Chelsey Tarango RN 11/02/2024 09:53:51 AM SILVER MINER >administered to the right lower quadrant of the abdomen. Pt tolerated well with minimal discomfort observed or reported. Sublocade 11/29/2024 300 mg Wilbert, Natalie L 11/29/2024 02:39:08 PM SILVER MINER >Pt tolerated well. No s&s of adverse [...] 05/26/2025 300 mg Sublocade 06/23/2025 300 mg Sublocade 07/27/2025 300 mg Wilbert, Natalie L 07/27/2025 11:12:23 AM CDT >Pt tolerated well. No s/s of adverse reaction. 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
[2025-08-05] MEDS: IRON SUCROSE COMPLEX 200 MG, IRON SUCROSE COMPLEX 100 MG in SODIUM CHLORIDE 0.9% IV 250 ML 132.5 MG IVPB (10:20)
[2025-08-05 12:27] VITALS: BP 130/76; PULSE 84; RESP 14
--- NOTE | 2025-08-05 12:28 | PC.NURSE ---
Patient tolerated #1 of 3 Venofer infusion well. SEE MAR/Patient care notes.
== END 2025-08-05 09:52 | disposition home or self-care (01) ==
PROVIDERS: PCP Nurse Practitioner Family; Visit Provider Nurse Practitioner Family
DX: D50.9 Iron deficiency anemia, unspecified (principal)
CPT/HCPCS: 96365; 96366; J1756; J7050

== ENCOUNTER 2025-09-09 08:54 | Outpatient (CLI) | payer OTHER, SELFPAY ==
--- OUTSIDE RECORDS SUMMARY | 2025-05-10 07:00 | XMS_ITS ---
[facility] Organization [facility] Address [address] [place] [address] Care Team Providers Care Pill Packer Name Role Phone Murphy Loza Primary Care Provider Kyra Tamez Unavailable [phone] Layla Curry Unavailable [phone] REASON FOR VISIT 2 Week F/U Social History Sex Assigned At : Social History Observation Description Sex Assigned At Male Encounters Encounter Location Date Provider Diagnosis [address] [address] 05/10/2025 Murphy Loza Plan Of Treatment No Information Progress Notes * MG Ramirez RDOB:1980 (45 yo M)Acc No.[id number]:05/10/2025 UNLOCKED PROGRESS NOTE Progress Notes Patient: Ramirez CAMP Provider: Yazan Loza :1980 A ge:44 Y S ex:Male Date:05/10/2025 Address:[address] [place], [place] [id number] Structured Data:Is there a n zainab you would prefer we call you? (Nombre que prefiere usar) : No Subjective: * Chief Complaints: * 1 . 2 Week F/U. * Medical History: Objective: * Vitals: Assessment: Plan: * Treatment: * * Electronic signature of Yue Loza [id number] on 09/09/2025 at 08:59 AM MASTER OCEAN YACHT Sign off status: Pending * Provider: Yazan Loza Date: 0 05/10/2025 Generated for Rudolph archuleta/Jasmyne/Rik on: 1 11/09/2024 08:59 AM MASTER OCEAN YACHT
--- OUTSIDE RECORDS SUMMARY | 2025-08-09 05:00 | XMS_ITS ---
Author Organization [facility] Address [address] [place] [address] Care Team Providers Care Private Duty Nurse Name Role Phone Murphy Loza Primary Care Provider Kyra Tamez Unavailable [phone] Layla Curry Unavailable [phone] José Miguel Mckee Unavailable REASON FOR VISIT initial therapy Social History Sex Assigned At : Social History Observation Description Sex Assigned At Male Encounters Encounter Location Date Provider Diagnosis [facility] [address], [place] [address] 08/09/2025 José Miguel Mckee Plan Of Treatment No Information Progress Notes * MG Ramirez RDOB:1980 (45 yo M)Acc No.[id number]:08/09/2025 UNLOCKED PROGRESS NOTE Patient: Ramirez CAMP Provider: Naya Mckee :1980 A ge:44 Y S ex:Male Date:08/09/2025 Address:[address] [facility] Pcp:Murphy Loza Structured Data:Is there a n zainab you would prefer we call you? (Nombre que prefiere usar) : No Subjective: * Chief Complaints: * 1 . Initial therapy. * Medical History: Objective: * Vitals: Assessment: Plan: * Treatment: * * Electronic signature of Kevin Mckee on 09/09/2025 at 08:58 AM FIELD MARKETING SPECIALIST Sign off status: Pending * Provider: Naya Mckee Date: Generated for Rudolph archuleta/Jasmyne/Rik on: 11/09/2024 08:58 AM FIELD MARKETING SPECIALIST
--- OUTSIDE RECORDS SUMMARY | 2025-08-22 04:00 | XMS_ITS ---
Author Organization [facility] Address [address] [place] [address] Care Team Providers Care Screen Tender Helper Name Role Phone Murphy Loza Primary Care Provider [phone] Kyra Tamez Unavailable [phone] Layla Curry Unavailable [phone] REASON FOR VISIT Sublocade injection Medications Medication SIG (Take, Route, Frequency, Duration) Notes Start Date End Date Status Gabapentin 300 MG TAKE 1 CAPSULE BY [facility] THREE TIMES A DAY; Duration: 30 Active Buprenorphine HCl-Naloxone HCl 4-1 MG 1 film under the tongue and allow to dissolve Sublingual Once a day; Duration: 7 days As needed for opioid withdrawal 07/21/2025 Not-Taking Sublocade 300 MG/1.5ML 1.5 mL Subcutaneo us every 28 days; Duration: 28 days 08/19/2025 Active clonazePAM 1 MG 1 tablet Orally 3 ti mes a day; Duration: 30 days 08/19/2025 Active Sublocade 300 MG/1.5ML 1.5 mL Subcutaneo us every 28 days; Duration: 28 days 08/19/2025 Active Nicotine 21 MG/24HR 1 patch to skin Transdermal Once a day; Duration: 30 days 05/26/2025 Not-Taking Mirtazapine 45 MG 1 tablet at bedtime Orally Once a day; Duration: 90 days Active Escitalopram Oxalate 20 MG TAKE 1 TABLET BY MOUTH EVERY DAY; Duration: 90 days Active buPROPion HCl ER (XL) 300 MG TAKE 1 TABLET BY MOUTH EVERY DAY AT THE MORNING FOR 30 DAYS 90 DAYS; Duration: 90 Active Finasteride 5 MG 1 tablet Orally Once a day Active Farxiga 10 MG 1 tablet Orally Once a day Active clonazePAM 1 MG 1 tablet Orally 3 ti mes a day; Duration: 30 days 08/19/2025 Active Nicorette 4 MG 1 piece chew for 30 minutes as needed Mouth/Throat ,Every 1-2 hours, up to 16 a day 07/27/2025 Active Social History Sex Assigned At : Social History Observation Description Sex Assigned At Male Vital Signs Weight 301.8 lbs 08/22/2025 Heart Rate 89 /min 08/22/2025 Oximetry 98 % 08/22/2025 Temperature 99.2 degrees Fahrenheit 08/22/20 Respiratory Rate 16 /min 08/22/2025 Encounters Encounter Location Date Provider Diagnosis [address] [place] [address] 08/22/2025 Murphy Loza Opioid use disorder F11.99 Assessments Encounter Date Diagnosis (ICD Code) Assessment Notes Treatment Notes Treatment Clinical Notes Section Notes 08/22/2025 Opioid use disorder (ICD-10 - F11.99) Plan Of Treatment No Information Medications Administered Medication Instructions Date of Administration Dosage Notes Sublocade 08/22/2025 300 mg INDIVIORHoskin s Kelly N 08/22/2025 10:13:50 AM MODEL ENGINE MECHANIC >PT LARISSA WELL Progress Notes * Ramirez HOLLIDAY RDOB:1980 (45 yo M)Acc No.[id number]:08/22/2025 UNLOCKED PROGRESS NOTE Progress Note Patient: Ramirez CAMP Provider: Yazan Loza :1980 A ge:44 Y S ex:Male Date:08/22/2025 Address:[address] [place], [place] [id number] Structured Data:Is there a n zainab you would prefer we call you? (Nombre que prefiere usar) : No Check In:09:43 AM MODEL ENGINE MECHANIC Subjective: * Chief Complaints: * 1 . Sublocade injection. * Medical History: * Medications: T aking Nicorette 4 MG Gum 1 piece chew for 30 minutes as needed Mouth/Throat ,Every 1-2 hours, up to 16 a day , Taking Farxiga 10 MG Tablet 1 tablet Orally Once a day , Taking Finasteride 5 MG Tablet 1 tablet Orally Once a day , Taking buPROPion HCl ER (XL) 300 MG Tablet Extended Release 24 Hour TAKE 1 TABLET BY MOUTH EVERY DAY AT THE MORNING FOR 30 DAYS 90 DAYS , Taking Escitalopram Oxalate 20 MG Tablet TAKE 1 TABLET BY MOUTH EVERY DAY , Taking Mirtazapine 45 MG Tablet 1 tablet at bedtime Orally Once a day , Taking Gabapentin 300 MG Capsule TAKE 1 CAPSULE BY MOUTH THREE TIMES A DAY , Taking Sublocade 300 MG/1.5ML Solution Prefilled Syringe 1.5 mL Subcutaneous every 28 days , Taking clonazePAM 1 MG Tablet 1 tablet Orally 3 times a day , Taking Sublocade 300 MG/1.5ML Solution Prefilled Syringe 1.5 mL Subcutaneous every 28 days , Taking clonazePAM 1 MG Tablet 1 tablet Orally 3 times a day , Not-Taking Nicotine 21 MG/24HR Patch 24 Hour 1 patch to skin Transdermal Once a day , Not-Taking Buprenorphine HCl-Naloxone HCl 4-1 MG Film 1 film under the tongue and allow to dissolve Sublingual Once a day As needed for opioid withdrawal Objective: * Vitals: I nitials: AH, Wt:301.8, HR:89, Oxygen sat %:98, Temp:99.2, RR:16, Pain scale:0. Assessment: * Assessment: 1. O pioid use disorder - F11.99 Plan: * Treatment: * Therapeutic Injections: Sublocade : 300 mg (Dose No:1) (Route: Subcutaneous) given by OTTONIEL Wilkes on left lower quadrant * Procedure Codes: [id number] THER/PROPH/DIAG INJ, SC/IM * * Electronic signature of Yue Loza , [id number] on 09/09/2025 at 08:58 AM MODEL ENGINE MECHANIC Sign off status: Pending * Provider: Yazan Loza Date: 10/22/2024 Generated for Rudolph archuleta/Jasmyne/Rik on: 11/09/2024 08:58 AM MODEL ENGINE MECHANIC
--- OUTSIDE RECORDS SUMMARY | 2025-09-09 08:59 | XMS_ITS | Clinical Summary ---
Author Organization [facility] Address [address] [place] [address] Care Team Providers Care Insurance Processor Name Role Phone Jose Hurtado MD Primary Care Provider [phone] Source Comments [facility] Affiliates and Associated Physician Practices is amultiple site organization consisting of ambulatory clinics and hospital sitesin [place], [place], [place] and [place]. This disclosure is being madepursuant to the Care Everywhere program and may not contain all information available regarding this patient. 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 Gender Identity Not on file Sexual Orientation Not on file Last Filed Vital Signs Vital Sign Reading Time Taken Comments Blood Pressure 132/93 08/25/2015 1:50 AM SAILING INSTRUCTOR Pulse 65 08/25/2015 1:51 AM SAILING INSTRUCTOR Temperature 37.1 C (98.7 F) 08/25/2015 1:31 AM SAILING INSTRUCTOR Respiratory Rate 16 08/25/2015 1:31 AM SAILING INSTRUCTOR Oxygen Saturation 100% 08/25/2015 1:51 AM SAILING INSTRUCTOR Inhaled Oxygen Concentration - - Weight 111.1 kg (245 lb) 08/25/2015 1:31 AM SAILING INSTRUCTOR Height 177.8 cm (5' 10) 08/25/2015 1:31 AM SAILING INSTRUCTOR Body Mass Index 35.15 08/25/2015 1:31 AM SAILING INSTRUCTOR Plan of Treatment Health Maintenance Due Date Last Done Comments LIPID TESTING 1980 HIV SCREENING 1997 HEPATITIS C SCREENING 08/27/2000 DTAP/TDAP/TD VACCINES (1 - Tdap) 2001 HEPATITIS B VACCINE (1 of 3 - 19+ 3-dose series) 2001 HPV VACCINE (1 - 3-dose SCDM series) 2009 DEPRESSION SCREENING 10/13/2024 COVID-19 VACCINE (1 - 2024-2 6 season) 2025 INFLUENZA VACCINE (#1) 2025 ZOSTER [...] patient's age to complete this topic Insurance [facility] Care Teams Insurance Processor Relationship Specialty Start Date End Date Jose Hurtado MD PCP - General 08/25/15
--- OUTSIDE RECORDS SUMMARY | 2025-09-09 08:59 | XMS_ITS | Clinical Summary ---
Author Organization [facility] Address [address], [address] [address] Phone Care Team Providers Care Storage Garage Attendant Name Role Phone Jose Hurtado MD Primary Care Provider [phone] Allergies No known active allergies Medications citalopram [...] Comments Blood Pressure 110/80 11/13/2018 9:35 AM MANAGER SUPPORT SERVICES Pulse 90 11/13/2018 9:35 AM MANAGER SUPPORT SERVICES Temperature - - Respiratory Rate - - Oxygen Saturation 98% 11/13/2018 9:35 AM MANAGER SUPPORT SERVICES Inhaled Oxygen Concentration - - Weight 125.2 kg (276 lb) 11/13/2018 9:35 AM MANAGER SUPPORT SERVICES Height 177.8 cm (5' 10) 11/13/2018 9:35 AM MANAGER SUPPORT SERVICES Body Mass Index 39.6 11/13/2018 9:35 AM MANAGER SUPPORT SERVICES Plan of Treatment Health Maintenance Due Date Last Done Comments Hepatitis C Virus (HCV) Screening 1982 TdaP Immunization 1982 Varicella Immunization (1 of 2 - 13+ 2-dose series) 1995 Hepatitis B Immunization (1 of 3 - [...] this topic Insurance [place] [address] Care Teams Storage Garage Attendant Relationship Specialty Start Date End Date Jose Hurtado MD [address] [place] [address] PCP - General Family Medicine 02/24/18
--- OUTSIDE RECORDS SUMMARY | 2025-09-09 08:59 | XMS_ITS | Clinical Summary ---
Author Organization [facility] Address [facility] [place] [address] Care Team Providers Care Fios Line Installer Name Role Phone Jose Hurtado MD Primary Care Provider [phone] Allergies No known active allergies Medications buprenorphine-na [...] patient's age to complete this topic Insurance [facility] Care Teams Fios Line Installer Relationship Specialty Start Date End Date Jose Hurtado MD [address] [place] [address] [facility] - General 09/18/15
--- OUTSIDE RECORDS SUMMARY | 2025-09-09 08:59 | XMS_ITS | Clinical Summary ---
Author Organization 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
--- OUTSIDE RECORDS SUMMARY | 2025-09-09 08:59 | XMS_ITS | Patient Health Record ---
Author Organization [facility] Address [address] [place] [address] Care Team Providers Care Sales Performance Analyst Name Role Phone Murphy Loza Primary Care Provider [phone] Kyra Tamez Unavailable [phone] Layla Curry Unavailable [phone] Linnette Stearns Unavailable Regina Plasencia Unavailable [phone] José Miguel Mckee Unavailable [phone] Asia Franz Unavailable [phone] Allergies No Known Allergies Results Component Value [...] neg 14 Panel Urine Drug Screen Reviewed date:07/27/2025 [...] pos 12 Panel Urine Drug Screen Reviewed date:11/02/2024 [...] neg 12 Panel Urine Drug Screen Reviewed date:11/29/2024 [...] POS 14 Panel Urine Drug Screen Reviewed date:08/19/2025 12:29:34 PM Interpretation: Performing Lab: Notes/Report: THC N LORA N MOP (OPI) N AMP N MET N BAR N BZO N MTD N OXY N PCP N BUP P TCA N FTY N 14 Panel Urine Drug Screen Reviewed date:05/26/2025 09:13:03 AM Interpretation: Performing Lab: Notes/Report: THC neg LORA neg MOP (OPI) neg AMP neg MET neg BAR neg BZO neg MDMA neg MTD neg OXY neg PCP neg BUP POS TCA neg FTY neg Reason For Referral Reason ANXIETY, PANIC ATTAC [place], BENZODIAZEPINE DEPENDENCE, PREFERS OUTSIDE OF [place] Diagnosis 1 Anxiety disorder, un specified (F41.9) Referral Organization [facility] Referring Provider First Name Murphy Referring Provider Last Name Dago Referring Provider Speciality Internal edicine Referred Provider Specialty Psychiatry General Notes Marisa Stoll RN 08/19/2025 12:19:23 PM > Sees Kyra Tamez in house at [place] Referral Priority Routine Reason Start Therapy (resta rt) Diagnosis 1 Major depression (F3 2.9) Diagnosis 2 Anxiety (F41.9) Referral Organization [facility] Referring Provider First Name Kyra Referring Provider Last Name Dashawn Referring Provider Speciality Psychiatry Referred Provider Specialty Behavioral [facility] General Notes Kyra Tamez 02:35:46 PM > Client was seeing Diane in the past and would like to restart with her (if able). Please refer for intake. Thanks! Clinical Notes Darlene Mckee 08/03/2025 10:18:10 AM > shift superintendent spoke with client who was agreeable to meeting with commercial lines underwriter for short term therapy services. Client is scheduled to speak with client 08/09 via phone appointment at 11am. Referral Priority Routine Reason Colonoscopy please, prefers [facility] Diagnosis 1 Iron deficiency anem ia (D50.9) Referral Organization [facility] Referring Provider First Name Murphy Referring Provider Last Name Dago Referring Provider Speciality Internal edicine Referred Provider Specialty Gastroentero logy General Notes Tirso WHITING, Destinee Hand 09/2025 03:34:11 PM > Clinical Notes [facility], Gastroenterology, [address], [facility] , , fax [phone] Referral Priority Routine Medications Medication SIG (Take, Route, Frequency, Duration) Notes Start Date End Date Status Farxiga 10 MG 1 tablet Orally Once a day Active clonazePAM 1 MG 1 tablet Orally 3 ti mes a day; Duration: 30 days 08/19/2025 Active Nicorette 4 MG 1 piece chew for 30 minutes as needed Mouth/Throat ,Every 1-2 hours, up to 16 a day 07/27/2025 Active Sublocade 300 MG/1.5ML 1.5 mL Subcutaneo us every 28 days; Duration: 28 days 08/19/2025 Active clonazePAM 1 MG 1 tablet Orally 3 ti mes a day; Duration: 30 days 08/19/2025 Active Sublocade 300 MG/1.5ML 1.5 mL Subcutaneo us every 28 days; Duration: 28 days 08/19/2025 Active Mirtazapine 45 MG 1 tablet at [...] 1 tablet Orally Once a day Active Buprenorphine HCl-Naloxone HCl 4-1 MG 1 film under the tongue and allow to dissolve Sublingual Once a day; Duration: 7 days As needed for opioid withdrawal 07/21/2025 Not-Taking Nicotine 21 MG/24HR 1 patch to skin Transdermal Once a day; Duration: 30 days 05/26/2025 Not-Taking Gabapentin 300 MG TAKE 1 CAPSULE BY MO UT THREE TIMES A DAY; Duration: 30 Active Immunizations Vaccine Route Administration Date Status Comme nts FLU VAC NO PRSV 4VAL 6 mo+ IM Intramuscular 08/10/2024 Administered Vanda Faulkner 08/10/2024 04:10 PM CDT >Given LMD, tolerated well. [facility] [id number] Influenza, virus vaccine, trivalent, preservative free IM Intramuscular 08/19/2025 Administered Social History Tobacco Use: Social History Observation [...] W/U Status Risk Notes Problem Tobacco user (837801976) Nicotine dependence, unspecified, uncomplicated (F17.200) Active confirmed Problem Severe recurrent major depression without psychotic features (44039313) Major depressive disorder, recurrent severe without psychotic features (F33.2) Active confirmed Problem Anxiety disorder (122386901) Anxiety disorder, unspecified (F41.9) Active confirmed Problem Major depression (778936325) Major depression (F32.9) 03/11/20 24 Active confirmed Problem Anxiety (85982039) Anxiety (F41.9) Active confirmed Problem Thyroid nodule (275046461) Thyroid nodule (E04.1) Active confirmed Problem Obstructive sleep apnea (62381275) Obstructive sleep apnea (G47.33) 03/11/20 24 Active confirmed Problem Iron deficiency anemia (74556891) Iron deficiency anemia (D50.9) Active confirmed Problem Overweight (220886930) Over weight (E66.3) Active confirmed Problem Benzodiazepine dependence (798833207) Benzodiazepine dependence (F13.20) Active confirmed Problem Obesity (561515447) Obesity (BMI 30-39.9) (E66.9) Active confirmed Problem Body mass index 30+ - obesity (700910183) Body mass index (BMI) of 30.0-30.9 in adult (Z68.30) Active confirmed Problem Obesity (793353291) Obesity, unspecified classification, unspecified obesity type, unspecified whether serious comorbidity present (E66.9) Active confirmed Problem Steatosis of liver (887805479) Hepatic steatosis (K76.0) Active confirmed Problem Opioid use disorder (3174975206) Opioid use disorder (F11.99) 03/11/20 24 Active confirmed Problem History of cancer (744084221) History of cancer (Z85.9) 10/13/19 17 Active confirmed Vital Signs Heart Rate 89 /min 08/22/2025 Temperature 99.2 degrees Fahrenheit 08/22/2025 Respiratory Rate 16 /min 08/22/2025 Blood pressure diastolic 88 mm Hg 07/27/2025 Oximetry 98 % 08/22/2025 Height 70 in in 08/19/2025 Blood pressure systolic 124 mm Hg 07/27/2025 Weight 301.8 lbs 08/22/2025 BMI 42.09 kg/m2 08/19/2025 Encounters Encounter Location Date Provider Diagnosis [address] [place] [address] 08/22/2025 Murphy Loza Opioid use disorder F11.[address] [place] [address] 09/13/2024 Murphy Loza Opioid use disorder F11.[address] [address] 10/04/2024 Regina Paulsonlufik Opioid use disorder F11.[address] [place] [address] 11/02/2024 Regina Szlufik Opioid use disorder F11.99 and Nutritional counseling Z71.3 [facility] [address] [place] [address] 11/09/2024 Kyra Tamez Major depression F32.9 and Anxiety F41.[address] [place] [address] 11/29/2024 Regina Paulsonlufik Opioid use disorder F11.[address] [address] 12/29/2024 Regina Paulsonlufik Opioid use disorder F11.[address] [address] 01/27/2025 Regina Paulsonlufik Opioid use disorder F11.99 and Over weight E66.[address] [address] 01/27/2025 José Miguel Mckee [address] [place] [address] 02/03/2025 Murphy Loza Over weight E66.3 and Benzodiazepine dependence F13.[address] [place] [address] 02/21/2025 Kyra Tamez Major depression F32.9 ; Anxiety F41.9 and Over weight E66.[address] [place] [address] 02/28/2025 Regina Plasencia Opioid use disorder F11.99 and Over weight E66.[address] [address] 03/15/2025 Murphycharlie Loza Benzodiazepine dependence F13.[address] [address] 03/29/2025 Regina Plasencia Over weight E66.3 and Opioid use disorder F11.[address] [address] 04/12/2025 Murphy Loza Opioid use disorder F11.99 ; Hepatic steatosis K76.0 and Benzodiazepine dependence F13.20 [facility] [address] [address] 04/26/2025 Linnettejames Stearns Opioid use disorder F11.99 and Nicotine dependence, unspecified, uncomplicated F17.[address] [address] 05/26/2025 Murphy Loza Opioid use disorder F11.99 ; Anxiety disorder, unspecified F41.9 ; Benzodiazepine dependence F13.20 and Vapes nicotine containing substance Z72.[address] [address] 06/02/2025 Kyra Tamez Major depression F32.9 ; Anxiety F41.9 and Over weight E66.[address] [address] 06/23/2025 Murphy Loza Opioid use disorder F11.99 ; Edema of both legs R60.0 and Benzodiazepine dependence F13.[address] [address] 07/06/2025 Kyra Tamez Major depression F32.9 ; Anxiety F41.9 and Over weight E66.[address] [address] 07/21/2025 Murphycharlie Loza Opioid use disorder F11.99 and Benzodiazepine dependence F13.[address] [place] [address] 07/27/2025 Asia Ochoadith Opioid use disorder F11.99 ; Nicotine dependence, unspecified, uncomplicated F17.200 and Over weight E66.[address] [place] [address] 08/19/2025 Murphy Loza Opioid use disorder F11.99 ; Benzodiazepine dependence F13.20 ; Iron deficiency anemia D50.9 ; Heart murmur, systolic R01.1 and Encounter for immunization Z23 [facility] [address] [place] [address] 10/22/2024 Kyra Tamez Major depression F32.[address] [place] [address] 12/29/2024 Regina Plasencia [address] [place] [address] 02/08/2025 Murphy Loza Anxiety F41.9 [facility] [address] [address] 02/11/2025 Kyra Tamez Major depression F32.9 and Anxiety F41.[address] [place] [address] 02/25/2025 Murphy Loza Anxiety F41.[address] [place] [address] 03/09/2025 Murphy Loza [address] [place] [address] 03/14/2025 Murphy Loza [facility] [address] [place] [address] 03/15/2025 Murphy Loza [facility] [address] [place] [address] 05/02/2025 Murphy Loza [address] [place] [address] 05/10/2025 Murphy Loza Benzodiazepine dependence F13.[address] [address] 05/23/2025 Murphy Loza Benzodiazepine dependence F13.[address] [address] 05/23/2025 Murphy Loza Opioid use disorder F11.99 and Benzodiazepine dependence F13.20 [facility] [address] [place] [address] 05/26/2025 Kyra Dashawn Major depression F32.[address] [address] 06/29/2025 Kyra Dashawn Major depression F32.[address] [address] 07/15/2025 Murphy Loza [address] [address] 07/27/2025 Asia Franz Nicotine dependence, unspecified, uncomplicated F17.[address] [address] 04/02/2025 Murphy Loza [address] [address] 05/23/2025 Kyra Dashawn Major depression F32.[address] [address] 08/09/2025 José Miguel Mckee Assessments Encounter Date Diagnosis (ICD Code) Assessment Notes Treatment Notes Treatment Clinical Notes Section Notes 03/15/2025 Benzodiazepine dependence (ICD-10 - F13.20) 04/12/2025 Opioid use disorder (ICD-10 - F11.99) 07/21/2025 Opioid use disorder (ICD-10 - F11.99) 07/27/2025 Nicotine dependence, unspecified, uncomplicated (ICD-10 - F17.200) 07/21/2025 Benzodiazepine dependence (ICD-10 - F13.20) 07/27/2025 Opioid use disorder (ICD-10 - F11.99) 07/27/2025 Nicotine dependence, unspecified, uncomplicated (ICD-10 - F17.200) 08/19/2025 Benzodiazepine dependence (ICD-10 - F13.20) 08/19/2025 Opioid use disorder (ICD-10 - F11.99) Two Rx's due to first went to wrong pharmacy 05/26/2025 Major depression (ICD-10 - F32.9) 06/02/2025 Major depression (ICD-10 - F32.9) 06/23/2025 Edema of both legs (ICD-10 - R60.0) DISCUSSED LEG ELEVATION, LOW SALT DIET, SUPPORT STOCKINGS 06/23/2025 Opioid use disorder (ICD-10 - F11.99) 06/29/2025 Major depression (ICD-10 - F32.9) 07/06/2025 Major depression (ICD-10 - F32.9) 04/26/2025 Nicotine [...] 03/29/2025 Opioid use disorder (ICD-10 - F11.99) 02/28/2025 Over weight (ICD-10 - E66.3) 02/28/2025 Opioid use disorder (ICD-10 - F11.99) 04/12/2025 Hepatic steatosis (ICD-10 - K76.0) CONTINUE TO WORK ON DIET, WEIGHT 02/25/2025 Anxiety (ICD-10 - F41.9) 01/27/2025 Opioid use disorder (ICD-10 - F11.99) [...] F41.9) 02/11/2025 Major depression (ICD-10 - F32.9) 11/29/2024 Opioid use disorder (ICD-10 - F11.99) 12/29/2024 Opioid use disorder (ICD-10 - F11.99) 02/21/2025 Major depression (ICD-10 - F32.9) 09/13/2024 Opioid use disorder (ICD-10 - F11.99) 10/04/2024 Opioid use disorder (ICD-10 - F11.99) 10/22/2024 Major depression (ICD-10 - F32.9) 11/02/2024 Nutritional counseling (ICD-10 - Z71.3) 11/02/2024 Opioid use disorder (ICD-10 - F11.99) 11/09/2024 Major depression (ICD-10 - F32.9) 08/22/2025 Opioid use disorder (ICD-10 - F11.99) 08/19/2025 Iron deficiency anemia (ICD-10 - D50.9) Complete iron infusions, then begin PO iron with Vit C 500 mg daily 11/09/2024 Anxiety (ICD-10 - F41.9) 02/21/2025 Anxiety (ICD-10 - F41.9) 01/27/2025 Over weight (ICD-10 - E66.3) 02/11/2025 Anxiety (ICD-10 - F41.9) 04/12/2025 Benzodiazepine dependence (ICD-10 - F13.20) CONTINUE WEAN 05/26/2025 Benzodiazepine dependence (ICD-10 - F13.20) DISCUSSED RISK OF RESPIRATORY DEPRESSION AND PREMATURE WITH CHRONIC BENZO USE, PEYMAN. WITH USE OF OPOIDS. HE UNDERSTANDS BUT FEELS HE IS UNABLE TO TOLERATE TAPER. 05/23/2025 Benzodiazepine dependence (ICD-10 - F13.20) 07/06/2025 Anxiety (ICD-10 - F41.9) 06/02/2025 Anxiety (ICD-10 - F41.9) 06/23/2025 Benzodiazepine dependence (ICD-10 - F13.20) DUPLICATE RX DUE TO PHARMACY CHANGE 07/27/2025 Over weight (ICD-10 - E66.3) 08/19/2025 Heart murmur, systolic (ICD-10 - R01.1) 06/02/2025 Over weight (ICD-10 - E66.3) 07/06/2025 Over weight (ICD-10 - E66.3) 05/26/2025 Vapes nicotine containing substance (ICD-10 - Z72.0) 02/21/2025 Over weight (ICD-10 - E66.3) 08/19/2025 Encounter for immunization (ICD-10 - Z23) Ordered per standing orders for administering influenza vaccine to adults. 10/04/2024 Other Patient agrees to take medication [...] may self-administer their own oral medications per [place] Protocol. 12/29/2024 Other Provided list of shelters. Message sent to [facility] for additional housing resources. Patient agrees to [...] may self-administer their own oral medications per [place] Protocol. May not self-administer Sublocade. 01/27/2025 Other Met with health navigator [facility] for community resources Patient agrees to [...] may self-administer their own oral medications per [place] Protocol. 02/21/2025 Other Provider talked with SHOBHA [...] May also contact the 24-hour crisis hotline ([facility]), refer to the closest emergency [...] may self-administer their own oral medications per [place] Protocol. May not self-administer Sublocade. 04/12/2025 Other [...] May also contact the 24-hour crisis hotline ([facility]), refer to the closest emergency [...] may self-administer their own oral medications per [place] Protocol. Agrees to return to office in 28 days for next injection Plan Of Treatment Future Test Test Name Order Date Chest X-ray PA and lateral 05/24/2024 Insurance Providers Payer Name Payer Address Payer Phone Subscriber Number Group Number Insured Name Patient Relationship to Insured Coverage Start Date Coverage End Date [facility] Attn Claims Department [address] [place] [address] [phone] [id number] Ramirez Trevizo Self - patient is the insured 4 [facility] Attn Claims Department [address] [place] [address] [phone] [id number] Ramirez Trevizo Self - patient is the insured 4 Medications Administered Medication Instructions Date of Administration Dosage Notes Sublocade 10/04/2024 300 mg Sukhdeep Chelsey WHITING N 10/04/2024 02:49:36 PM RUG LAYER >pt tolerated well. minimal discomfort observed or reported. Sublocade 11/02/2024 300 mg Sukhdeep Chelsey WHITING N 11/02/2024 09:53:51 AM RUG LAYER >administered to the right lower quadrant of the abdomen. Pt tolerated well with minimal discomfort observed or reported. Sublocade 11/29/2024 300 mg Wilbert, Natalie L 11/29/2024 02:39:08 PM RUG LAYER >Pt tolerated well. No s&s of adverse [...] tolerated well. No s/s of adverse reaction. 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
[2025-09-09 09:11] VITALS: BP 132/80; PULSE 88; RESP 14; TEMP 36.6; O2SAT 98; BMI 45.1
[2025-09-09] MEDS: IRON SUCROSE COMPLEX 300 MG in SODIUM CHLORIDE 0.9% IV 235 ML 125 MG IVPB (09:30)
[2025-09-09 11:30] VITALS: BP 132/69; PULSE 80; RESP 14; O2SAT 97
--- NOTE | 2025-09-09 11:40 | PC.NURSE ---
Patient tolerated Venofer #2 infusion well. SEE MAR/patient care notes.
== END 2025-09-09 08:55 | disposition home or self-care (01) ==
PROVIDERS: PCP Nurse Practitioner Family; Visit Provider Nurse Practitioner Family
DX: D50.0 Iron deficiency anemia secondary to blood loss (chronic) (principal)
CPT/HCPCS: 96365; 96366; J1756; J7050

== ENCOUNTER 2025-09-23 08:52 | Outpatient (CLI) | payer OTHER, SELFPAY ==
[2025-09-23 09:14] VITALS: BP 127/86; PULSE 80; RESP 16; TEMP 36.6; O2SAT 97; BMI 45.1
[2025-09-23] MEDS: IRON SUCROSE COMPLEX 300 MG in SODIUM CHLORIDE 0.9% IV 235 ML 125 MG IVPB (09:35)
[2025-09-23 11:37] VITALS: BP 121/73; PULSE 80; RESP 14; O2SAT 96
--- NOTE | 2025-09-23 11:39 | PC.NURSE ---
Patient tolerated # 3 of 3 Venofer infusions. SEE MAR/patient care notes.
== END 2025-09-23 08:53 | disposition home or self-care (01) ==
PROVIDERS: PCP Nurse Practitioner Family; Visit Provider Nurse Practitioner Family
DX: D50.9 Iron deficiency anemia, unspecified (principal)
CPT/HCPCS: 96365; 96366; J1756; J7050